=== PATIENT | male | born 1960 | race Hispanic/Latino ===

== ENCOUNTER 2018-03-23 00:39 | Emergency (ER) | payer MEDICARE ==
[2018-03-23] MEDS ORDERED: ACETAMINOPHEN-CODEINE 300/30MG TAB ONE (01:51)
== END 2018-03-23 03:18 | disposition home or self-care (01) ==
LOC: EDH 00:39
DX: M79.672 Pain in left foot (principal); E11.9 Type 2 diabetes mellitus without complications; M19.90 Unspecified osteoarthritis, unspecified site; H40.9 Unspecified glaucoma; Z79.4 Long term (current) use of insulin
CPT/HCPCS: 73630

== ENCOUNTER 2018-12-14 07:17 | Emergency (ER) | payer MEDICARE ==
[2018-12-14] MEDS ORDERED: CEFTRIAXONE SODIUM 1 GM ONE (07:45)
[2018-12-14] MEDS ORDERED: ONDANSETRON ODT 4 MG TAB ONE (07:45)
[2018-12-14] MEDS ORDERED: LIDOCAINE HCL-MPF 1% 2ML VIAL ONE (07:45)
[2018-12-14] MEDS ORDERED: HYDROCODONE/ACETAMINOPHEN 10/325 MG TAB ONE (07:45)
== END 2018-12-14 08:50 | disposition home or self-care (01) ==
LOC: EDH 07:17
DX: H66.41 Suppurative otitis media, unspecified, right ear (principal); I10 Essential (primary) hypertension; E11.39 Type 2 diabetes mellitus with other diabetic ophthalmic complication; H42 Glaucoma in diseases classified elsewhere; M19.90 Unspecified osteoarthritis, unspecified site; Z98.890 Other specified postprocedural states
CPT/HCPCS: 82948; 96372; 99283; J0696; J3490

== ENCOUNTER 2019-01-23 21:14 | Emergency (ER) | payer MEDICARE ==
[2019-01-23] MEDS ORDERED: KETOROLAC TROMETHAMINE 60 MG/2 ML VIAL ONE (21:59)
[2019-01-23] MEDS ORDERED: CEFTRIAXONE SODIUM 1 GM ONE (22:41)
[2019-01-23] MEDS ORDERED: LIDOCAINE HCL-MPF 1% 2ML VIAL ONE (22:41)
== END 2019-01-23 23:09 | disposition home or self-care (01) ==
LOC: EDH 21:14
DX: J01.10 Acute frontal sinusitis, unspecified (principal); E11.9 Type 2 diabetes mellitus without complications; I10 Essential (primary) hypertension; M19.90 Unspecified osteoarthritis, unspecified site; Z98.890 Other specified postprocedural states
CPT/HCPCS: 70486; 96372 ×2; 99284; J0696; J1885; J3490

== ENCOUNTER 2019-04-17 06:19 | Emergency (ER) | payer MEDICARE ==
[2019-04-17] MEDS ORDERED: ASPIRIN 325 MG TABLET ONE (06:40)
[2019-04-17] MEDS ORDERED: ASPIRIN 81MG TAB.CHEW ONE (06:43)
[2019-04-17 06:44] LABS: BASOPHILS % (AUTO) 0.6 % (0.0-5.0); EOSINOPHILS % (AUTO) 2.7 % (0.0-8.0); HEMATOCRIT 40.8 % (42-54); LYMPHOCYTES % (AUTO) 25.7 % (21.0-51.0); MEAN CORPUSCULAR HEMOGLOBIN 31.2 pg (27.0-33.0); MEAN CORPUSCULAR HGB CONC 34.1 g/dL (32.0-36.0); MEAN CORPUSCULAR VOLUME 91.4 fL (79-99); MONOCYTES % (AUTO) 6.2 % (3.0-13.0); NEUTROPHILS % (AUTO) 64.8 % (40.0-77.0); NUCLEATED RED BLOOD CELLS 0.1 % (0.0-0.19); PLATELET COUNT (AUTO) 202 K/uL (130-400); RED BLOOD CELL COUNT(AUTO) 4.47 MIL/uL (4.50-6.20); WHITE BLOOD COUNT (AUTO) 6.7 K/uL (4.8-10.8)
[2019-04-17 06:47] LABS: APPEARANCE,URINE Clear (CLEAR); BILIRUBIN,URINE Negative (NEGATIVE); COLOR,URINE Yellow (YELLOW); GLUCOSE, URINE (UA) Negative (NEGATIVE); KETONES,URINE Negative (NEGATIVE); LEUKOCYTE ESTERASE ,URINE Negative (NEGATIVE); NITRATE,URINE Negative (NEGATIVE); OCCULT BLOOD,URINE Negative (NEGATIVE); PH,URINE 8.5 (5.0-8.0); PROTEIN,URINE Negative (NEGATIVE)
[2019-04-17 06:55] LABS: CREATININE 2.7 mg/dL (0.5-1.5); POTASSIUM 4.7 mmol/L (3.5-5.1)
[2019-04-17 06:58] LABS: INR 0.94 (0.85-1.15); PARTIAL THROMBOPLASTIN TIME 28.2 SEC (26.3-35.5); PROTHROMBIN TIME 9.9 SEC (9.6-11.6)
[2019-04-17 07:08] LABS: ALBUMIN 3.4 g/dL (3.5-5.0); BILIRUBIN,TOTAL 0.4 mg/dL (0.2-1.0); TOTAL PROTEIN, SERUM 6.8 g/dL (6.0-8.3)
== END 2019-04-17 16:07 | disposition home or self-care (01) ==
LOC: EDH 06:19
DX: N17.9 Acute kidney failure, unspecified (principal); R00.2 Palpitations; E11.39 Type 2 diabetes mellitus with other diabetic ophthalmic complication; H40.9 Unspecified glaucoma; I10 Essential (primary) hypertension; Z79.4 Long term (current) use of insulin
CPT/HCPCS: 36415; 71045; 80053; 81003; 82550; 82948; 83874; 84484; 85025; 85610; 85730; 93005

== ENCOUNTER 2019-04-24 00:11 | Emergency (ER) | payer MEDICARE ==
[2019-04-24 01:35] LABS: APPEARANCE,URINE Clear (CLEAR); BASOPHILS % (AUTO) 0.8 % (0.0-5.0); BILIRUBIN,URINE Negative (NEGATIVE); COLOR,URINE Yellow (YELLOW); EOSINOPHILS % (AUTO) 2.7 % (0.0-8.0); GLUCOSE, URINE (UA) Negative (NEGATIVE); HEMATOCRIT 42.4 % (42-54); KETONES,URINE Negative (NEGATIVE); LEUKOCYTE ESTERASE ,URINE Negative (NEGATIVE); LYMPHOCYTES % (AUTO) 26.6 % (21.0-51.0); MEAN CORPUSCULAR HEMOGLOBIN 30.9 pg (27.0-33.0); MEAN CORPUSCULAR HGB CONC 33.5 g/dL (32.0-36.0); MEAN CORPUSCULAR VOLUME 92.4 fL (79-99); MONOCYTES % (AUTO) 8.2 % (3.0-13.0); NEUTROPHILS % (AUTO) 61.7 % (40.0-77.0); NITRATE,URINE Negative (NEGATIVE); NUCLEATED RED BLOOD CELLS 0.1 % (0.0-0.19); OCCULT BLOOD,URINE Negative (NEGATIVE); PLATELET COUNT (AUTO) 213 K/uL (130-400); PROTEIN,URINE Negative (NEGATIVE); RED BLOOD CELL COUNT(AUTO) 4.59 MIL/uL (4.50-6.20); WHITE BLOOD COUNT (AUTO) 7.9 K/uL (4.8-10.8)
[2019-04-24 01:42] LABS: CREATININE 0.9 mg/dL (0.5-1.5); POTASSIUM 4.2 mmol/L (3.5-5.1)
[2019-04-24 01:47] LABS: ALBUMIN 3.8 g/dL (3.5-5.0); BILIRUBIN,TOTAL 0.4 mg/dL (0.2-1.0); TOTAL PROTEIN, SERUM 7.3 g/dL (6.0-8.3)
[2019-04-24 01:59] LABS: INR 0.95 (0.85-1.15); PARTIAL THROMBOPLASTIN TIME 28.4 SEC (26.3-35.5)
== END 2019-04-24 03:02 | disposition home or self-care (01) ==
LOC: EDH 00:11
DX: N44.2 Benign cyst of testis (principal); R36.1 Hematospermia; I10 Essential (primary) hypertension; E11.9 Type 2 diabetes mellitus without complications; M19.90 Unspecified osteoarthritis, unspecified site; Z98.890 Other specified postprocedural states; Z79.4 Long term (current) use of insulin
CPT/HCPCS: 36415; 76870; 80053; 81003; 85025; 85610; 85730

== ENCOUNTER 2019-05-13 07:14 | Day surgery (SDC) | payer MEDICARE ==
[~2019-05-13] VITALS: Ht 172.7 cm; Wt 121.1 kg
[~2019-05-13 07:14] MED LIST: ALLO300T2 PO; ASPI-1197 PO; ATOR40TA71 PO; ATROPINE SULFATE 0.1 MG/ML 10 ML SYG IVP ONE; BRIM5DRO4 OU; DICY20TA11 PO; ERGO500014 PO; INSU100I35 SQ; LATA7.5D OU; LISI-613 PO; METF-526 PO; PROPOFOL 10 MG/ML 20ML VIAL IV ONE; ROSU10TA28 PO; SODIUM CHLORIDE 0.9% 1000ML 1,000 ML IV ONE; TIMO.5OS OU
[2019-05-13 09:21] VITALS: BP 132/62
[2019-05-13] MEDS ORDERED: OMEP-50 PO (09:43)
[2019-05-13] MEDS ORDERED: VITAMIN B12 PO (09:43)
[2019-05-13 11:21] VITALS: BP 96/34
[2019-05-13 11:26] VITALS: BP 109/53
[2019-05-13 11:31] VITALS: BP 114/62
[2019-05-13 11:36] VITALS: BP 115/55
--- NOTE | 2019-05-13 12:20 | NUR ---
Update Awaiting new prescription from Dr. Manrique. Patient stated he gets abdominal bloating from omeprazole.
== END 2019-05-13 12:20 | disposition home or self-care (01) ==
LOC: ENDO 07:14 → DAH 07:14 → ENDO 12:20
PROVIDERS: ATTEND Internal Medicine
DX: K21.0 Gastro-esophageal reflux disease with esophagitis (principal); K29.80 Duodenitis without bleeding; K31.9 Disease of stomach and duodenum, unspecified; K29.50 Unspecified chronic gastritis without bleeding; K44.9 Diaphragmatic hernia without obstruction or gangrene; I44.4 Left anterior fascicular block; K31.89 Other diseases of stomach and duodenum; G47.30 Sleep apnea, unspecified; Z99.89 Dependence on other enabling machines and devices; E78.5 Hyperlipidemia, unspecified; K58.9 Irritable bowel syndrome, unspecified; I11.9 Hypertensive heart disease without heart failure; M19.90 Unspecified osteoarthritis, unspecified site; E11.9 Type 2 diabetes mellitus without complications; Z79.84 Long term (current) use of oral hypoglycemic drugs; Z79.899 Other long term (current) drug therapy
CPT/HCPCS: 43239; 82948 ×2; 88305; 88342; 93005; A4606; J0461; J2704; J7030

== ENCOUNTER 2019-05-17 20:09 | Emergency (ER) | payer MEDICARE ==
[~2019-05-17 20:09] MED LIST changes: -ATROPINE SULFATE 0.1 MG/ML 10 ML SYG IVP ONE; -PROPOFOL 10 MG/ML 20ML VIAL IV ONE; -SODIUM CHLORIDE 0.9% 1000ML 1,000 ML IV ONE; +VITAMIN B12 PO
[2019-05-17 20:56] LABS: BASOPHILS % (AUTO) 0.4 % (0.0-5.0); EOSINOPHILS % (AUTO) 2.6 % (0.0-8.0); HEMATOCRIT 37.2 % (42-54); LYMPHOCYTES % (AUTO) 18.3 % (21.0-51.0); MEAN CORPUSCULAR HGB CONC 33.9 g/dL (32.0-36.0); MEAN CORPUSCULAR VOLUME 91.5 fL (79-99); MONOCYTES % (AUTO) 6.2 % (3.0-13.0); NEUTROPHILS % (AUTO) 72.5 % (40.0-77.0); PLATELET COUNT (AUTO) 231 K/uL (130-400); RED BLOOD CELL COUNT(AUTO) 4.06 MIL/uL (4.50-6.20); RED CELL DISTRIBUTION WIDTH 14.2 % (11.0-15.5)
[2019-05-17 21:10] LABS: APPEARANCE,URINE Clear (CLEAR); BILIRUBIN,URINE Negative (NEGATIVE); COLOR,URINE Yellow (YELLOW); GLUCOSE, URINE (UA) Negative (NEGATIVE); KETONES,URINE 15 mg/dL (NEGATIVE); LEUKOCYTE ESTERASE ,URINE Negative (NEGATIVE); NITRATE,URINE Negative (NEGATIVE); OCCULT BLOOD,URINE Negative (NEGATIVE); PH,URINE 8.5 (5.0-8.0); PROTEIN,URINE Negative (NEGATIVE)
[2019-05-17 21:17] LABS: POTASSIUM 3.6 mmol/L (3.5-5.1)
[2019-05-17 21:22] LABS: ALBUMIN 3.6 g/dL (3.5-5.0); BILIRUBIN,DIRECT 0.1 mg/dL (0.0-0.3); BILIRUBIN,TOTAL 0.5 mg/dL (0.2-1.0); TOTAL PROTEIN, SERUM 7.1 g/dL (6.0-8.3)
[2019-05-17] MEDS ORDERED: FAMOTIDINE/PF 20 MG/2 ML VIAL IV ONE (22:16)
== END 2019-05-18 00:18 | disposition home or self-care (01) ==
LOC: EDH 20:09
DX: K29.70 Gastritis, unspecified, without bleeding (principal); K30 Functional dyspepsia; K44.9 Diaphragmatic hernia without obstruction or gangrene; K20.9 Esophagitis, unspecified; R06.00 Dyspnea, unspecified; M19.90 Unspecified osteoarthritis, unspecified site; I10 Essential (primary) hypertension; E11.9 Type 2 diabetes mellitus without complications; Z88.8 Allergy status to other drugs, medicaments and biological substances; Z98.890 Other specified postprocedural states
CPT/HCPCS: 36415; 71046; 80048; 80076; 81003; 82550; 83690; 84484 ×2; 85025; 93005 ×2; 96374; 99285; J3490

== ENCOUNTER 2019-09-20 23:54 | Emergency (ER) | payer MEDICARE ==
[2019-09-21 00:24] LABS: APPEARANCE,URINE Cloudy (CLEAR); BILIRUBIN,URINE Negative (NEGATIVE); COLOR,URINE Yellow (YELLOW); GLUCOSE, URINE (UA) Negative (NEGATIVE); KETONES,URINE Negative (NEGATIVE); LEUKOCYTE ESTERASE ,URINE Moderate (NEGATIVE); NITRATE,URINE Negative (NEGATIVE); OCCULT BLOOD,URINE Negative (NEGATIVE); PROTEIN,URINE Negative (NEGATIVE); UROBILINOGEN,URINE 0.2 mg/dL (0.2-1.0)
[2019-09-21 00:32] LABS: BACTERIA,URINE Rare /HPF (None Seen); MUCUS,URINE Few LPF (None Seen); RBC,URINE None Seen /HPF (0-1); SQUAMOUS EPITHELIAL CELL,UR Few /HPF (0-2)
[2019-09-21 00:41] LABS: RAPID GROUP A STREP NEGATIVE (NEGATIVE)
[2019-09-21] MEDS ORDERED: LIDOCAINE HCL-MPF 1% 2ML VIAL ONE (00:48)
[2019-09-21] MEDS ORDERED: CEFTRIAXONE SODIUM 1 GM ONE (00:48)
[2019-09-21] MEDS ORDERED: PHENAZOPYRIDINE HCL 200 MG TABLET ONE (00:48)
== END 2019-09-21 00:58 | disposition home or self-care (01) ==
LOC: EDH 23:54
DX: N30.00 Acute cystitis without hematuria (principal); J06.9 Acute upper respiratory infection, unspecified; M19.90 Unspecified osteoarthritis, unspecified site; I42.9 Cardiomyopathy, unspecified; E11.9 Type 2 diabetes mellitus without complications; I10 Essential (primary) hypertension; K58.9 Irritable bowel syndrome, unspecified; G47.30 Sleep apnea, unspecified; Z98.890 Other specified postprocedural states
CPT/HCPCS: 81001; 87088; 87486; 87797; 87804 ×2; 87880; 96372; 99284; J0696; J3490

== ENCOUNTER 2020-02-17 00:19 | Emergency (ER) | payer MEDICARE ==
[2020-02-17 00:35] LABS: BASOPHILS % (AUTO) 0.3 % (0.0-5.0); EOSINOPHILS % (AUTO) 2.4 % (0.0-8.0); HEMATOCRIT 43.4 % (42-54); LYMPHOCYTES % (AUTO) 24.2 % (21.0-51.0); MEAN CORPUSCULAR HGB CONC 33.6 g/dL (32.0-36.0); MEAN CORPUSCULAR VOLUME 92.1 fL (79-99); MONOCYTES % (AUTO) 6.5 % (3.0-13.0); NEUTROPHILS % (AUTO) 66.4 % (40.0-77.0); PLATELET COUNT (AUTO) 224 K/uL (130-400); RED BLOOD CELL COUNT(AUTO) 4.71 MIL/uL (4.50-6.20); RED CELL DISTRIBUTION WIDTH 13.2 % (11.0-15.5); WHITE BLOOD COUNT (AUTO) 9.1 K/uL (4.8-10.8)
[2020-02-17 00:42] LABS: CREATININE 0.9 mg/dL (0.5-1.5); POTASSIUM 3.4 mmol/L (3.5-5.1)
[2020-02-17 01:42] LABS: HEMOGLOBIN A1C 7.3 % (4.0-6.0)
== END 2020-02-17 01:47 | disposition home or self-care (01) ==
LOC: EDH 00:19
DX: E16.2 Hypoglycemia, unspecified (principal); M19.90 Unspecified osteoarthritis, unspecified site; E11.9 Type 2 diabetes mellitus without complications; I10 Essential (primary) hypertension; Z91.018 Allergy to other foods
CPT/HCPCS: 36415; 80048; 82948; 83036; 85025

== ENCOUNTER 2020-12-16 22:24 | Emergency (ER) | payer MEDICARE ==
[~2020-12-16 22:24] MED LIST changes: -LISI-613 PO; +LISI20TA24 PO
[2020-12-16 22:57] LABS: BASOPHILS % (AUTO) 0.4 % (0.0-5.0); EOSINOPHILS % (AUTO) 2.5 % (0.0-8.0); HEMATOCRIT 51.1 % (42-54); LYMPHOCYTES % (AUTO) 28.4 % (21.0-51.0); MEAN CORPUSCULAR HEMOGLOBIN 29.1 pg (27.0-33.0); MEAN CORPUSCULAR HGB CONC 31.7 g/dL (32.0-36.0); MEAN CORPUSCULAR VOLUME 91.9 fL (79-99); MONOCYTES % (AUTO) 6.3 % (3.0-13.0); NEUTROPHILS % (AUTO) 62.1 % (40.0-77.0); PLATELET COUNT (AUTO) 235 K/uL (130-400); RED BLOOD CELL COUNT(AUTO) 5.56 MIL/uL (4.50-6.20); RED CELL DISTRIBUTION WIDTH 13.9 % (11.0-15.5); WHITE BLOOD COUNT (AUTO) 7.6 K/uL (4.8-10.8)
[2020-12-16 22:59] LABS: APPEARANCE,URINE Clear (CLEAR); BILIRUBIN,URINE Negative (NEGATIVE); COLOR,URINE Yellow (YELLOW); GLUCOSE, URINE (UA) >=1000 mg/dL (NEGATIVE); KETONES,URINE Negative (NEGATIVE); LEUKOCYTE ESTERASE ,URINE Negative (NEGATIVE); NITRATE,URINE Negative (NEGATIVE); OCCULT BLOOD,URINE Negative (NEGATIVE); PROTEIN,URINE Negative (NEGATIVE); UROBILINOGEN,URINE 0.2 mg/dL (0.2-1.0)
[2020-12-16] MEDS ORDERED: ONDANSETRON HCL 4 MG/2 ML VIAL ONE (23:00)
[2020-12-16 23:08] LABS: POTASSIUM 4.1 mmol/L (3.5-5.1)
[2020-12-16 23:09] LABS: BACTERIA,URINE None Seen /HPF (None Seen); INR 1.03 (0.85-1.15); PROTHROMBIN TIME 11.2 SEC (9.6-11.6); RBC,URINE 0-1 /HPF (0-1); SQUAMOUS EPITHELIAL CELL,UR Few /HPF (0-2); WBC,URINE None Seen /HPF (0-1); YEAST,URINE BUDDING None Seen /HPF (None Seen)
[2020-12-16 23:10] LABS: PARTIAL THROMBOPLASTIN TIME 28.8 SEC (26.3-35.5)
[2020-12-16] MEDS ORDERED: IOHEXOL-350 75 ML VIAL IV ONE (23:11)
[2020-12-16 23:13] LABS: ALBUMIN 3.8 g/dL (3.5-5.0); BILIRUBIN,TOTAL 0.6 mg/dL (0.2-1.0); TOTAL PROTEIN, SERUM 7.6 g/dL (6.0-8.3)
== END 2020-12-17 01:08 | disposition home or self-care (01) ==
LOC: EDH 22:24
DX: R10.31 Right lower quadrant pain (principal); M19.90 Unspecified osteoarthritis, unspecified site; E11.9 Type 2 diabetes mellitus without complications; I10 Essential (primary) hypertension; M10.9 Gout, unspecified; Z91.018 Allergy to other foods
CPT/HCPCS: 36415; 74177; 80053; 81001; 83690; 85025; 85610; 85730; 96374; 99285; J2405; Q9967

== ENCOUNTER 2021-03-25 13:21 | Emergency (ER) | payer MEDICARE ==
[~2021-03-25] VITALS: Ht 172.7 cm; Wt 117.9 kg
[2021-03-25] MEDS ORDERED: 0.9% NACL 500ML IV.SOLN 500 ML IV SCH (16:00)
[2021-03-25 16:04] LABS: APPEARANCE,URINE Clear (CLEAR); BILIRUBIN,URINE Negative (NEGATIVE); COLOR,URINE Yellow (YELLOW); GLUCOSE, URINE (UA) Negative (NEGATIVE); KETONES,URINE Negative (NEGATIVE); LEUKOCYTE ESTERASE ,URINE Negative (NEGATIVE); NITRATE,URINE Negative (NEGATIVE); OCCULT BLOOD,URINE Negative (NEGATIVE); PROTEIN,URINE Negative (NEGATIVE); UROBILINOGEN,URINE 0.2 mg/dL (0.2-1.0)
[2021-03-25] MEDS ORDERED: 0.9%NACL 1000ML 1,000 ML IV ONE (16:12)
[2021-03-25 16:28] LABS: BASOPHILS % (AUTO) 0.2 % (0.0-5.0); EOSINOPHILS % (AUTO) 1.9 % (0.0-8.0); HEMATOCRIT 45.7 % (42-54); LYMPHOCYTES % (AUTO) 19.9 % (21.0-51.0); MEAN CORPUSCULAR HEMOGLOBIN 30.1 pg (27.0-33.0); MEAN CORPUSCULAR HGB CONC 32.2 g/dL (32.0-36.0); MEAN CORPUSCULAR VOLUME 93.5 fL (79-99); MONOCYTES % (AUTO) 5.7 % (3.0-13.0); NEUTROPHILS % (AUTO) 71.9 % (40.0-77.0); PLATELET COUNT (AUTO) 228 K/uL (130-400); RED BLOOD CELL COUNT(AUTO) 4.89 MIL/uL (4.50-6.20); RED CELL DISTRIBUTION WIDTH 13.6 % (11.0-15.5); WHITE BLOOD COUNT (AUTO) 11.3 K/uL (4.8-10.8)
[2021-03-25 16:49] LABS: CARBON DIOXIDE 30 mmol/L (21-32); CHLORIDE 105 mmol/L (101-111); CREATININE 0.8 mg/dL (0.5-1.5); GLOMERULAR FILTR. RATE CALC 105 mL/min (>60); GLUCOSE,RANDOM 102 mg/dL (70-105); POTASSIUM 4.5 mmol/L (3.5-5.1); SODIUM SERUM 143 mmol/L (136-145); UREA NITROGEN, BLOOD 23 mg/dL (7-18)
[2021-03-25 16:51] LABS: CRP QUANTITATIVE < 2.00 mg/L (0.00-9.0)
[2021-03-25 16:52] LABS: ALANINE AMINOTRANSFERASE 31 U/L (12-78); ALBUMIN 3.5 g/dL (3.5-5.0); ASPARTATE AMINOTRANSFERASE 17 U/L (10-37); BILIRUBIN,TOTAL 0.5 mg/dL (0.2-1.0); TOTAL PROTEIN, SERUM 7.5 g/dL (6.0-8.3)
[2021-03-25] MEDS ORDERED: IOHEXOL-350 75 ML VIAL IV ONE ×2 (17:05→17:48)
[2021-03-25 17:36] LABS: ERYTHROCYTE SEDIMENTATION RATE 3 MM/HR (0-20)
[2021-03-25] MEDS ORDERED: IBUP-2070 PO (19:26)
[2021-03-25] MEDS ORDERED: CYCL5TAB PO (19:26)
[2021-03-25] MEDS ORDERED: TRAM50TA4 PO (19:26)
[2021-03-25 19:39] VITALS: BP 139/69
== END 2021-03-25 19:45 | disposition home or self-care (01) ==
LOC: EDH 13:21
DX: S76.011A Strain of muscle, fascia and tendon of right hip, initial encounter (principal); M79.651 Pain in right thigh; E86.0 Dehydration; E11.9 Type 2 diabetes mellitus without complications; E78.5 Hyperlipidemia, unspecified; I10 Essential (primary) hypertension; K21.9 Gastro-esophageal reflux disease without esophagitis; M19.90 Unspecified osteoarthritis, unspecified site; Z79.4 Long term (current) use of insulin; Z96.643 Presence of artificial hip joint, bilateral; Z79.899 Other long term (current) drug therapy; Z79.82 Long term (current) use of aspirin; Z79.1 Long term (current) use of non-steroidal anti-inflammatories (NSAID); Z88.8 Allergy status to other drugs, medicaments and biological substances; X50.1XXA Overexertion from prolonged static or awkward postures, initial encounter; Y93.H2 Activity, gardening and landscaping; Y92.096 Garden or yard of other non-institutional residence as the place of occurrence of the external cause; Y99.8 Other external cause status
CPT/HCPCS: 36415; 73701; 80053; 81003; 85025; 85651; 86140; 87040 ×2; 96360; 99285; J7030; Q9967 ×2

== ENCOUNTER 2022-02-26 02:19 | Emergency (ER) | payer MEDICARE ==
[~2022-02-26] VITALS: Ht 172.7 cm; Wt 117.0 kg
[~2022-02-26 02:19] MED LIST changes: +CYCL5TAB PO; -DICY20TA11 PO; +DICY20TA3 PO; +IBUP-2070 PO; +TRAM50TA4 PO
[2022-02-26 02:39] VITALS: BP 140/66
[2022-02-26] MEDS ORDERED: CLOTRIMAZOLE 30 GM CREAM.GM. TP STA (02:40)
[2022-02-26] MEDS ORDERED: LIDO15CR11 TP (02:47)
[2022-02-26] MEDS ORDERED: BENZ85AE TP (02:47)
[2022-02-26] MEDS ORDERED: CLOT15CR23 TP (02:47)
[2022-02-26] MEDS ORDERED: BENZOCAINE/LANOLIN/ALOE VERA 60 ML AEROSOL TP ONE (02:51)
[2022-02-26] MEDS ORDERED: LIDOCAINE/PRILOCAINE CREAM 5GM TUBE TP SCH (03:00)
[2022-02-26] MEDS ORDERED: BENZOCAINE/LANOLIN/ALOE VERA 60 ML AEROSOL TP PRN (03:00)
== END 2022-02-26 03:05 | disposition home or self-care (01) ==
LOC: EDH 02:19
DX: B35.6 Tinea cruris (principal); E11.9 Type 2 diabetes mellitus without complications; E78.00 Pure hypercholesterolemia, unspecified; G47.30 Sleep apnea, unspecified; I10 Essential (primary) hypertension; Z79.1 Long term (current) use of non-steroidal anti-inflammatories (NSAID); Z79.82 Long term (current) use of aspirin; Z79.84 Long term (current) use of oral hypoglycemic drugs; Z96.643 Presence of artificial hip joint, bilateral
CPT/HCPCS: 99284; J3490

== ENCOUNTER 2022-10-15 19:42 | Emergency (ER) | payer MEDICARE ==
[~2022-10-15] VITALS: Ht 172.7 cm; Wt 113.9 kg
[~2022-10-15 19:42] MED LIST changes: +BENZ85AE TP; +CLOT15CR23 TP; +LIDO15CR11 TP
[2022-10-15 21:18] VITALS: BP 161/83
[2022-10-15 21:55] LABS: BASOPHILS % (AUTO) 0.4 % (0.0-5.0); EOSINOPHILS % (AUTO) 2.3 % (0.0-8.0); HEMATOCRIT 46.9 % (42-54); LYMPHOCYTES % (AUTO) 26.8 % (21.0-51.0); MEAN CORPUSCULAR HEMOGLOBIN 30.7 pg (27.0-33.0); MEAN CORPUSCULAR HGB CONC 33.5 g/dL (32.0-36.0); MEAN CORPUSCULAR VOLUME 91.6 fL (79-99); MONOCYTES % (AUTO) 6.8 % (3.0-13.0); NEUTROPHILS % (AUTO) 63.4 % (40.0-77.0); PLATELET COUNT (AUTO) 223 K/uL (130-400); RED BLOOD CELL COUNT(AUTO) 5.12 MIL/uL (4.50-6.20); RED CELL DISTRIBUTION WIDTH 13.4 % (11.0-15.5); WHITE BLOOD COUNT (AUTO) 7.9 K/uL (4.8-10.8)
[2022-10-15 22:06] LABS: POTASSIUM 4.1 mmol/L (3.5-5.1)
[2022-10-15 22:11] LABS: ALBUMIN 3.7 g/dL (3.5-5.0); TOTAL PROTEIN, SERUM 7.5 g/dL (6.0-8.3)
[2022-10-15] MEDS ORDERED: IBUP-2070 PO (22:49)
[2022-10-15] MEDS ORDERED: ONDA4TAB10 PO (22:49)
[2022-10-15] MEDS ORDERED: KETOROLAC 30MG VIAL (30MG/ML) IM ONE (23:00)
== END 2022-10-15 23:03 | disposition home or self-care (01) ==
LOC: EDH 19:42
DX: K08.89 Other specified disorders of teeth and supporting structures (principal); E11.9 Type 2 diabetes mellitus without complications; I10 Essential (primary) hypertension; I42.9 Cardiomyopathy, unspecified; Z79.1 Long term (current) use of non-steroidal anti-inflammatories (NSAID); Z79.82 Long term (current) use of aspirin; Z79.84 Long term (current) use of oral hypoglycemic drugs; Z20.822 Contact with and (suspected) exposure to COVID-19; Z79.899 Other long term (current) drug therapy; Z91.018 Allergy to other foods
CPT/HCPCS: 99283; 87635; 80053; 85025; 83605; 36415; 96372; C9803; J1885

== ENCOUNTER 2022-10-25 19:19 | Emergency (ER) | payer MEDICARE ==
[~2022-10-25] VITALS: Ht 170.2 cm; Wt 112.0 kg
[~2022-10-25 19:19] MED LIST changes: +ONDA4TAB10 PO
[2022-10-25 19:47] LABS: BASOPHILS % (AUTO) 0.3 % (0.0-5.0); EOSINOPHILS % (AUTO) 1.5 % (0.0-8.0); HEMATOCRIT 48.1 % (42-54); MEAN CORPUSCULAR HEMOGLOBIN 30.5 pg (27.0-33.0); MEAN CORPUSCULAR HGB CONC 32.6 g/dL (32.0-36.0); MEAN CORPUSCULAR VOLUME 93.4 fL (79-99); MONOCYTES % (AUTO) 6.9 % (3.0-13.0); PLATELET COUNT (AUTO) 245 K/uL (130-400); RED BLOOD CELL COUNT(AUTO) 5.15 MIL/uL (4.50-6.20); RED CELL DISTRIBUTION WIDTH 13.2 % (11.0-15.5); WHITE BLOOD COUNT (AUTO) 9.8 K/uL (4.8-10.8)
[2022-10-25 20:00] LABS: INR 0.93 (0.85-1.15); PROTHROMBIN TIME 10.1 SEC (9.6-11.6)
[2022-10-25 20:04] LABS: CREATININE 0.9 mg/dL (0.5-1.5); POTASSIUM 3.3 mmol/L (3.5-5.1)
[2022-10-25 20:09] LABS: ALBUMIN 3.7 g/dL (3.5-5.0); TOTAL PROTEIN, SERUM 7.6 g/dL (6.0-8.3)
[2022-10-25 20:22] LABS: B-TYPE NATRIURETIC PEPTIDE 14 pg/mL (0-100)
[2022-10-25] MEDS ORDERED: POTASSIUM BICARB/CIT AC 25 MEQ TABLET.EFF PO ONE (20:30)
[2022-10-25 22:29] LABS: APPEARANCE,URINE CLEAR (CLEAR); BILIRUBIN,URINE NEGATIVE (NEGATIVE); COLOR,URINE LIGHT-YELLOW (YELLOW); GLUCOSE, URINE (UA) >=1000 mg/dL (NEGATIVE); KETONES,URINE 5 mg/dL (NEGATIVE); LEUKOCYTE ESTERASE ,URINE NEGATIVE Leu/uL (NEGATIVE); NITRATE,URINE NEGATIVE (NEGATIVE); OCCULT BLOOD,URINE NEGATIVE (NEGATIVE); PH,URINE 5.5 (5.0-8.0); PROTEIN,URINE NEGATIVE (NEGATIVE); UROBILINOGEN,URINE 0.2 mg/dL (0.2-1.0)
[2022-10-25] MEDS ORDERED: 0.9%NACL 1000ML 1,000 ML IV ONE (22:30)
[2022-10-25 22:32] LABS: MUCUS,URINE RARE LPF (None Seen); RBC,URINE 0-1 /HPF (0-1); WBC,URINE 0-1 /HPF (0-1)
[2022-10-25 23:54] VITALS: BP 126/65
== END 2022-10-26 00:20 | disposition home or self-care (01) ==
LOC: EDH 19:19
DX: I49.3 Ventricular premature depolarization (principal); F41.9 Anxiety disorder, unspecified; E11.9 Type 2 diabetes mellitus without complications; Z98.890 Other specified postprocedural states; Z79.899 Other long term (current) drug therapy; Z79.82 Long term (current) use of aspirin; Z79.84 Long term (current) use of oral hypoglycemic drugs
CPT/HCPCS: 36415; 71045; 80053; 81001; 83735; 83880; 84484; 85025; 85610; 93005

== ENCOUNTER 2022-11-10 01:49 | Emergency (ER) | payer MEDICARE ==
[~2022-11-10] VITALS: Ht 172.7 cm; Wt 115.2 kg
[2022-11-10] MEDS ORDERED: AMOX1TAB16 PO (03:13)
[2022-11-10] MEDS ORDERED: IBUP-1493 PO (03:13)
[2022-11-10] MEDS ORDERED: TRAM50TA4 PO (03:13)
[2022-11-10 03:30] VITALS: BP 149/82
[2022-11-10] MEDS ORDERED: HYDROCODONE/ACETAMINOPHEN 10/325 MG TAB PO ONE (03:30)
[2022-11-10] MEDS ORDERED: ALBUTEROL 0.083% 2.5 MG/3 ML INH IH ONE (03:30)
== END 2022-11-10 03:35 | disposition home or self-care (01) ==
LOC: EDH 01:49
DX: K08.89 Other specified disorders of teeth and supporting structures (principal); J01.90 Acute sinusitis, unspecified; E11.9 Type 2 diabetes mellitus without complications; E78.00 Pure hypercholesterolemia, unspecified; I10 Essential (primary) hypertension; M19.90 Unspecified osteoarthritis, unspecified site; Z79.1 Long term (current) use of non-steroidal anti-inflammatories (NSAID); Z79.82 Long term (current) use of aspirin; Z79.84 Long term (current) use of oral hypoglycemic drugs; Z96.643 Presence of artificial hip joint, bilateral
CPT/HCPCS: 70486

== ENCOUNTER → 2022-11-22 | Outpatient (CLI) | payer OTHER ==
[~2022-11-22] MED LIST changes: +AMOX1TAB16 PO; -CLOT15CR23 TP; -CYCL5TAB PO; +IBUP-1493 PO; -IBUP-2070 PO; -LIDO15CR11 TP
== END | disposition home or self-care (01) ==
LOC: RAH 12:31
PROVIDERS: ATTEND Internal Medicine Cardiovascular Disease
DX: Z13.6 Encounter for screening for cardiovascular disorders (principal); I51.5 Myocardial degeneration
CPT/HCPCS: 75571

== ENCOUNTER 2022-11-30 18:56 | Emergency (ER) | payer MEDICARE, OTHER ==
[~2022-11-30] VITALS: Ht 172.7 cm; Wt 111.6 kg
[2022-11-30] MEDS ORDERED: ACETAMINOPHEN WITH CODEINE 1 TAB TAB PO ONE (20:00)
[2022-11-30] MEDS ORDERED: ACET-2079 PO (20:06)
[2022-11-30 20:10] VITALS: BP 154/84
[2022-12-01] MEDS ORDERED: AMOX1TAB16 PO (22:01)
== END 2022-11-30 20:18 | disposition home or self-care (01) ==
LOC: EDH 18:56
DX: S02.5XXA Fracture of tooth (traumatic), initial encounter for closed fracture (principal); G47.30 Sleep apnea, unspecified; Z79.899 Other long term (current) drug therapy; Z79.84 Long term (current) use of oral hypoglycemic drugs; Z79.82 Long term (current) use of aspirin; Z96.643 Presence of artificial hip joint, bilateral; Z88.8 Allergy status to other drugs, medicaments and biological substances; X58.XXXA Exposure to other specified factors, initial encounter; Y93.89 Activity, other specified; Y92.89 Other specified places as the place of occurrence of the external cause; Y99.8 Other external cause status

== ENCOUNTER 2022-12-01 18:41 | Emergency (ER) | payer MEDICARE ==
[~2022-12-01] VITALS: Ht 172.7 cm; Wt 113.4 kg
[~2022-12-01 18:41] MED LIST changes: +ACET-2079 PO
[2022-12-01 20:28] LABS: BASOPHILS % (AUTO) 0.3 % (0.0-5.0); EOSINOPHILS % (AUTO) 1.8 % (0.0-8.0); HEMATOCRIT 50.4 % (42-54); LYMPHOCYTES % (AUTO) 25.4 % (21.0-51.0); MEAN CORPUSCULAR HEMOGLOBIN 30.2 pg (27.0-33.0); MEAN CORPUSCULAR HGB CONC 33.3 g/dL (32.0-36.0); MEAN CORPUSCULAR VOLUME 90.5 fL (79-99); MONOCYTES % (AUTO) 7.5 % (3.0-13.0); NEUTROPHILS % (AUTO) 64.7 % (40.0-77.0); PLATELET COUNT (AUTO) 251 K/uL (130-400); RED BLOOD CELL COUNT(AUTO) 5.57 MIL/uL (4.50-6.20); RED CELL DISTRIBUTION WIDTH 13.1 % (11.0-15.5)
[2022-12-01] MEDS ORDERED: KETOROLAC 60 MG VIAL (30MG/ML) IM ONE (20:30)
[2022-12-01 20:37] LABS: POTASSIUM 4.4 mmol/L (3.5-5.1)
[2022-12-01 20:42] LABS: ALBUMIN 3.9 g/dL (3.5-5.0); TOTAL PROTEIN, SERUM 7.9 g/dL (6.0-8.3)
[2022-12-01 21:28] VITALS: BP 147/79
[2022-12-01] MEDS ORDERED: AMOX1TAB16 PO (22:01)
== END 2022-12-01 22:22 | disposition home or self-care (01) ==
LOC: EDH 18:41
DX: K02.9 Dental caries, unspecified (principal); K08.89 Other specified disorders of teeth and supporting structures; J32.9 Chronic sinusitis, unspecified; I10 Essential (primary) hypertension; M19.90 Unspecified osteoarthritis, unspecified site; G47.30 Sleep apnea, unspecified; Z91.018 Allergy to other foods; Z98.890 Other specified postprocedural states; Z79.899 Other long term (current) drug therapy; Z79.84 Long term (current) use of oral hypoglycemic drugs; Z79.82 Long term (current) use of aspirin
CPT/HCPCS: 99285; 70486; 80053; 85025; 36415; 96372; J1885

== ENCOUNTER → 2022-12-05 | Outpatient (CLI) | payer MEDICARE ==
[2022-12-05 13:04] LABS: CHOLESTEROL 113 mg/dL (<200); HDL CHOLESTEROL 37 mg/dL (29-71); LDL DIRECT 61 mg/dL (0-99); TRIGLYCERIDES 59 mg/dL (30-200)
== END | disposition home or self-care (01) ==
LOC: LAB 08:06
PROVIDERS: ATTEND Internal Medicine Cardiovascular Disease
DX: E78.5 Hyperlipidemia, unspecified (principal)
CPT/HCPCS: 36415; 80061

== ENCOUNTER → 2022-12-25 | Outpatient (CLI) | payer MEDICARE ==
[~2022-12-25] MED LIST changes: +REGADENOSON 0.4 MG/5 ML PF SYG IVP SCH
== END | disposition home or self-care (01) ==
LOC: SHCH 08:16
PROVIDERS: ATTEND Internal Medicine Cardiovascular Disease
DX: I25.10 Atherosclerotic heart disease of native coronary artery without angina pectoris (principal); I10 Essential (primary) hypertension; E11.9 Type 2 diabetes mellitus without complications; Z79.899 Other long term (current) drug therapy
CPT/HCPCS: 78452; 96374; 93017; J2785; A9500 ×2

== ENCOUNTER 2023-02-03 18:25 | Emergency (ER) | payer MEDICARE ==
[~2023-02-03] VITALS: Ht 172.7 cm; Wt 109.8 kg
[~2023-02-03 18:25] MED LIST changes: -BRIM5DRO4 OU; +BRIM5DRO5 OU; -REGADENOSON 0.4 MG/5 ML PF SYG IVP SCH
[2023-02-03 18:49] LABS: BASOPHILS % (AUTO) 0.4 % (0.0-5.0); EOSINOPHILS % (AUTO) 1.8 % (0.0-8.0); HEMATOCRIT 49.7 % (42-54); LYMPHOCYTES % (AUTO) 24.4 % (21.0-51.0); MEAN CORPUSCULAR HEMOGLOBIN 30.3 pg (27.0-33.0); MEAN CORPUSCULAR HGB CONC 32.6 g/dL (32.0-36.0); MEAN CORPUSCULAR VOLUME 92.9 fL (79-99); MONOCYTES % (AUTO) 5.5 % (3.0-13.0); NEUTROPHILS % (AUTO) 67.5 % (40.0-77.0); PLATELET COUNT (AUTO) 216 K/uL (130-400); RED BLOOD CELL COUNT(AUTO) 5.35 MIL/uL (4.50-6.20); RED CELL DISTRIBUTION WIDTH 13.9 % (11.0-15.5); WHITE BLOOD COUNT (AUTO) 10.1 K/uL (4.8-10.8)
[2023-02-03 19:03] LABS: CREATININE 0.8 mg/dL (0.5-1.5); POTASSIUM 3.8 mmol/L (3.5-5.1)
[2023-02-03 19:10] LABS: ALBUMIN 3.9 g/dL (3.5-5.0); TOTAL PROTEIN, SERUM 7.1 g/dL (6.0-8.3)
[2023-02-03 19:11] VITALS: BP 148/70
[2023-02-03 19:36] LABS: B-TYPE NATRIURETIC PEPTIDE 11 pg/mL (0-100)
== END 2023-02-03 19:39 | disposition home or self-care (01) ==
LOC: EDH 18:25
DX: R00.2 Palpitations (principal); I49.3 Ventricular premature depolarization; E11.9 Type 2 diabetes mellitus without complications; K21.9 Gastro-esophageal reflux disease without esophagitis; I10 Essential (primary) hypertension; E78.00 Pure hypercholesterolemia, unspecified; Z79.1 Long term (current) use of non-steroidal anti-inflammatories (NSAID); Z79.2 Long term (current) use of antibiotics; Z79.4 Long term (current) use of insulin; Z79.82 Long term (current) use of aspirin; Z79.899 Other long term (current) drug therapy; Z88.8 Allergy status to other drugs, medicaments and biological substances; Z79.84 Long term (current) use of oral hypoglycemic drugs
CPT/HCPCS: 36415; 71045; 80053; 83735; 83880; 84484; 85025; 93005

== ENCOUNTER 2023-08-11 03:23 | Emergency (ER) | payer MEDICARE ==
[~2023-08-11] VITALS: Ht 172.7 cm; Wt 109.8 kg
[~2023-08-11 03:23] MED LIST changes: -ACET-2079 PO; -AMOX1TAB16 PO; -BENZ85AE TP; -IBUP-1493 PO; -ONDA4TAB10 PO; -TRAM50TA4 PO
[2023-08-11] MEDS ORDERED: DICYCLOMINE 20MG (10MG/ML) AMP IM ONE ×2 (03:32→04:00)
[2023-08-11 04:11] LABS: BASOPHILS # (AUTO) 0.04 K/uL (0.00-0.20); BASOPHILS % (AUTO) 0.4 % (0.0-5.0); EOSINOPHILS # (AUTO) 0.24 K/uL (0.00-0.70); EOSINOPHILS % (AUTO) 2.4 % (0.0-8.0); HEMATOCRIT 46.5 % (42-54); IMMATURE GRANULOCYTE ABSOLUTE 0.05 K/uL (0-1); LYMPHOCYTES # (AUTO) 2.1 K/uL (1.0-4.8); MEAN CORPUSCULAR HGB CONC 33.3 g/dL (32.0-36.0); MONOCYTES # (AUTO) 0.7 K/uL (0.1-1.0); MONOCYTES % (AUTO) 6.6 % (3.0-13.0); NEUTROPHILS # (AUTO) 7.1 K/uL (1.8-7.7); NEUTROPHILS % (AUTO) 69.1 % (40.0-77.0); PLATELET COUNT (AUTO) 221 K/uL (130-400); RED CELL DISTRIBUTION WIDTH 13.5 % (11.0-15.5); WHITE BLOOD COUNT (AUTO) 10.2 K/uL (4.8-10.8)
[2023-08-11 04:19] LABS: CREATININE 0.9 mg/dL (0.5-1.5); POTASSIUM 4.1 mmol/L (3.5-5.1)
[2023-08-11 04:24] LABS: ALBUMIN 3.4 g/dL (3.5-5.0); BILIRUBIN,TOTAL 0.5 mg/dL (0.2-1.0); TOTAL PROTEIN, SERUM 7.1 g/dL (6.0-8.3)
[2023-08-11] MEDS ORDERED: KETOROLAC 30MG VIAL (30MG/ML) ONE (04:34)
[2023-08-11] MEDS ORDERED: KETOROLAC 30MG VIAL (30MG/ML) IVP ONE (05:00)
[2023-08-11 05:19] LABS: APPEARANCE,URINE CLEAR (CLEAR); BILIRUBIN,URINE NEGATIVE (NEGATIVE); COLOR,URINE LIGHT-YELLOW (YELLOW); GLUCOSE, URINE (UA) >=1000 mg/dL (NEGATIVE); KETONES,URINE NEGATIVE (NEGATIVE); LEUKOCYTE ESTERASE ,URINE NEGATIVE Leu/uL (NEGATIVE); NITRATE,URINE NEGATIVE (NEGATIVE); OCCULT BLOOD,URINE NEGATIVE (NEGATIVE); PH,URINE 5.5 (5.0-8.0); PROTEIN,URINE NEGATIVE (NEGATIVE); UROBILINOGEN,URINE 0.2 mg/dL (0.2-1.0)
[2023-08-11 05:21] LABS: ADD UA MICROSCOPIC YES
[2023-08-11 05:23] LABS: BACTERIA,URINE RARE /HPF (None Seen); RBC,URINE 0-1 /HPF (0-1); SQUAMOUS EPITHELIAL CELL,UR RARE /HPF (0-2); WBC,URINE 0-1 /HPF (0-1)
[2023-08-11 05:48] VITALS: BP 124/62; PULSE 74; RESP 18; O2SAT 97
[2023-08-11] MEDS ORDERED: OMEP40CA21 PO (06:37)
[2023-08-11] MEDS ORDERED: DICY20TA2 PO (06:37)
== END 2023-08-11 06:45 | disposition home or self-care (01) ==
LOC: EDH 03:23
DX: R10.12 Left upper quadrant pain (principal); I10 Essential (primary) hypertension; E11.9 Type 2 diabetes mellitus without complications; E78.00 Pure hypercholesterolemia, unspecified; H40.9 Unspecified glaucoma; K21.9 Gastro-esophageal reflux disease without esophagitis; M19.90 Unspecified osteoarthritis, unspecified site; Z79.82 Long term (current) use of aspirin; Z79.84 Long term (current) use of oral hypoglycemic drugs; Z79.899 Other long term (current) drug therapy; Z98.890 Other specified postprocedural states; Z88.3 Allergy status to other anti-infective agents
CPT/HCPCS: 99285; 74177; 96374; 84484; 80053; 83690; 85025; 81001; 36415; 93005; 96372; J1885; J0500

== ENCOUNTER 2023-11-24 23:28 | Emergency (ER) | payer MEDICARE ==
[~2023-11-24] VITALS: Ht 172.7 cm; Wt 114.3 kg
[~2023-11-24 23:28] MED LIST changes: +DICY20TA2 PO; +OMEP40CA21 PO
[2023-11-24 23:53] LABS: BASOPHILS # (AUTO) 0.04 K/uL (0.00-0.20); BASOPHILS % (AUTO) 0.5 % (0.0-5.0); EOSINOPHILS % (AUTO) 2.6 % (0.0-8.0); HEMATOCRIT 47.4 % (42-54); IMMATURE GRANULOCYTE ABSOLUTE 0.04 K/uL (0-1); LYMPHOCYTES % (AUTO) 25.4 % (21.0-51.0); MEAN CORPUSCULAR HEMOGLOBIN 31.1 pg (27.0-33.0); MEAN CORPUSCULAR HGB CONC 33.5 g/dL (32.0-36.0); MEAN CORPUSCULAR VOLUME 92.6 fL (79-99); MONOCYTES # (AUTO) 0.5 K/uL (0.1-1.0); MONOCYTES % (AUTO) 6.8 % (3.0-13.0); NEUTROPHILS % (AUTO) 64.2 % (40.0-77.0); PLATELET COUNT (AUTO) 220 K/uL (130-400); RED BLOOD CELL COUNT(AUTO) 5.12 MIL/uL (4.50-6.20); RED CELL DISTRIBUTION WIDTH 13.2 % (11.0-15.5); WHITE BLOOD COUNT (AUTO) 7.8 K/uL (4.8-10.8)
[2023-11-24 23:57] LABS: ADD UA MICROSCOPIC YES; APPEARANCE,URINE CLEAR (CLEAR); BILIRUBIN,URINE NEGATIVE (NEGATIVE); COLOR,URINE COLORLESS (YELLOW); GLUCOSE, URINE (UA) >=1000 mg/dL (NEGATIVE); KETONES,URINE NEGATIVE (NEGATIVE); LEUKOCYTE ESTERASE ,URINE NEGATIVE Leu/uL (NEGATIVE); NITRATE,URINE NEGATIVE (NEGATIVE); OCCULT BLOOD,URINE NEGATIVE (NEGATIVE); PROTEIN,URINE NEGATIVE (NEGATIVE); UROBILINOGEN,URINE 0.2 mg/dL (0.2-1.0)
[2023-11-24 23:58] LABS: MUCUS,URINE RARE LPF (None Seen); WBC,URINE 0-1 /HPF (0-1)
[2023-11-25] MEDS: MORPHINE 2 MG SYG IVP ONE
[2023-11-25] MEDS: FAMOTIDINE 20MG VIAL IV ONE (00:05)
[2023-11-25] MEDS: MAG/ALUM/SIMETH 30 ML UDCUP PO ONE (00:05)
[2023-11-25] MEDS: LIDOCAINE HCL 2% VISCOUS 15 ML UDCUP PO ONE (00:05)
[2023-11-25] MEDS: METOCLOPRAMIDE 10 MG/2 ML VIAL IVP ONE (00:05)
[2023-11-25] MEDS: DICYCLOMINE HCL 10 MG/5 ML ML PO ONE (00:05)
[2023-11-25 00:09] LABS: CREATININE 0.8 mg/dL (0.5-1.5); POTASSIUM 4.2 mmol/L (3.5-5.1)
[2023-11-25 00:14] LABS: ALBUMIN 3.5 g/dL (3.5-5.0); BILIRUBIN,TOTAL 0.5 mg/dL (0.2-1.0); TOTAL PROTEIN, SERUM 6.8 g/dL (6.0-8.3)
[2023-11-25 02:55] VITALS: BP 124/53; PULSE 65; RESP 14; O2SAT 97
[2023-11-25] MEDS ORDERED: METO-296 PO (03:34)
[2023-11-25] MEDS ORDERED: PANT40TA PO (03:34)
== END 2023-11-25 03:40 | disposition home or self-care (01) ==
LOC: EDH 23:28
DX: K29.70 Gastritis, unspecified, without bleeding (principal); I10 Essential (primary) hypertension; E78.00 Pure hypercholesterolemia, unspecified; E11.9 Type 2 diabetes mellitus without complications; K21.9 Gastro-esophageal reflux disease without esophagitis; M19.90 Unspecified osteoarthritis, unspecified site; Z88.8 Allergy status to other drugs, medicaments and biological substances; Z79.4 Long term (current) use of insulin; Z79.84 Long term (current) use of oral hypoglycemic drugs; Z79.899 Other long term (current) drug therapy
CPT/HCPCS: 99285; 74176; 96365; 71045; 96366; 96375; 84484 ×4; 80053; 83690; 85025; 83605; 81001; 36415 ×2; 93005 ×2; 76705; J3490; J2765; J2270

== ENCOUNTER 2024-02-22 06:36 | Emergency (ER) | payer MEDICARE ==
[~2024-02-22] VITALS: Ht 172.7 cm; Wt 113.4 kg
[~2024-02-22 06:36] MED LIST changes: +METO-296 PO; +PANT40TA PO
[2024-02-22 07:01] LABS: BASOPHILS # (AUTO) 0.02 K/uL (0.00-0.20); BASOPHILS % (AUTO) 0.3 % (0.0-5.0); EOSINOPHILS # (AUTO) 0.19 K/uL (0.00-0.70); EOSINOPHILS % (AUTO) 2.5 % (0.0-8.0); HEMATOCRIT 46.3 % (42-54); IMMATURE GRANULOCYTE ABSOLUTE 0.04 K/uL (0-1); LYMPHOCYTES # (AUTO) 1.7 K/uL (1.0-4.8); LYMPHOCYTES % (AUTO) 22.6 % (21.0-51.0); MEAN CORPUSCULAR HEMOGLOBIN 30.5 pg (27.0-33.0); MEAN CORPUSCULAR VOLUME 92.4 fL (79-99); MONOCYTES # (AUTO) 0.5 K/uL (0.1-1.0); MONOCYTES % (AUTO) 6.2 % (3.0-13.0); NEUTROPHILS # (AUTO) 5.2 K/uL (1.8-7.7); NEUTROPHILS % (AUTO) 67.9 % (40.0-77.0); PLATELET COUNT (AUTO) 198 K/uL (130-400); RED BLOOD CELL COUNT(AUTO) 5.01 MIL/uL (4.50-6.20); RED CELL DISTRIBUTION WIDTH 13.3 % (11.0-15.5); WHITE BLOOD COUNT (AUTO) 7.7 K/uL (4.8-10.8)
[2024-02-22 07:13] LABS: ALBUMIN 3.5 g/dL (3.5-5.0); BILIRUBIN,TOTAL 0.6 mg/dL (0.2-1.0); CREATININE 0.8 mg/dL (0.5-1.3); POTASSIUM 4.2 mmol/L (3.5-5.1); TOTAL PROTEIN, SERUM 7.2 g/dL (6.0-8.3)
[2024-02-22 07:15] LABS: APPEARANCE,URINE CLEAR (CLEAR); BILIRUBIN,URINE NEGATIVE (NEGATIVE); COLOR,URINE LIGHT-YELLOW (YELLOW); GLUCOSE, URINE (UA) TRACE mg/dL (NEGATIVE); KETONES,URINE NEGATIVE (NEGATIVE); LEUKOCYTE ESTERASE ,URINE 75 Leu/uL (NEGATIVE); NITRATE,URINE NEGATIVE (NEGATIVE); OCCULT BLOOD,URINE LARGE (NEGATIVE); PROTEIN,URINE 10 mg/dL (NEGATIVE); UROBILINOGEN,URINE 0.2 mg/dL (0.2-1.0)
[2024-02-22 07:29] LABS: ADD UA MICROSCOPIC YES
[2024-02-22 07:42] LABS: BACTERIA,URINE RARE /HPF (None Seen); MUCUS,URINE RARE LPF (None Seen); RBC,URINE 26-50 /HPF (0-1); SQUAMOUS EPITHELIAL CELL,UR RARE /HPF (0-2)
[2024-02-22] MEDS ORDERED: TERB30CR8 TP (10:52)
[2024-02-22 10:56] VITALS: BP 127/66; PULSE 63; RESP 16; O2SAT 99
== END 2024-02-22 11:28 | disposition home or self-care (01) ==
LOC: EDH 06:36
DX: B37.42 Candidal balanitis (principal); I10 Essential (primary) hypertension; E11.9 Type 2 diabetes mellitus without complications; E03.9 Hypothyroidism, unspecified; E78.00 Pure hypercholesterolemia, unspecified; G47.30 Sleep apnea, unspecified; K85.90 Acute pancreatitis without necrosis or infection, unspecified; M10.9 Gout, unspecified; N20.0 Calculus of kidney; Z79.82 Long term (current) use of aspirin; Z79.84 Long term (current) use of oral hypoglycemic drugs; Z79.899 Other long term (current) drug therapy; Z98.890 Other specified postprocedural states; Z88.8 Allergy status to other drugs, medicaments and biological substances
CPT/HCPCS: 36415; 74176; 80053; 81001; 82948; 85025; 87088

== ENCOUNTER 2024-06-13 01:01 | Emergency (ER) | payer MEDICARE ==
[~2024-06-13] VITALS: Ht 172.7 cm; Wt 110.7 kg
[~2024-06-13 01:01] MED LIST changes: -ROSU10TA28 PO; +ROSU10TA72 PO; +TERB30CR8 TP
[2024-06-13 01:25] LABS: BASOPHILS # (AUTO) 0.02 K/uL (0.00-0.20); BASOPHILS % (AUTO) 0.2 % (0.0-5.0); EOSINOPHILS # (AUTO) 0.23 K/uL (0.00-0.70); HEMATOCRIT 47.7 % (42-54); IMMATURE GRANULOCYTE ABSOLUTE 0.05 K/uL (0-1); LYMPHOCYTES # (AUTO) 1.8 K/uL (1.0-4.8); LYMPHOCYTES % (AUTO) 15.6 % (21.0-51.0); MEAN CORPUSCULAR HEMOGLOBIN 30.6 pg (27.0-33.0); MEAN CORPUSCULAR HGB CONC 33.5 g/dL (32.0-36.0); MEAN CORPUSCULAR VOLUME 91.2 fL (79-99); MONOCYTES # (AUTO) 0.7 K/uL (0.1-1.0); MONOCYTES % (AUTO) 6.4 % (3.0-13.0); NEUTROPHILS # (AUTO) 8.6 K/uL (1.8-7.7); NEUTROPHILS % (AUTO) 75.4 % (40.0-77.0); PLATELET COUNT (AUTO) 224 K/uL (130-400); RED BLOOD CELL COUNT(AUTO) 5.23 MIL/uL (4.50-6.20); RED CELL DISTRIBUTION WIDTH 13.6 % (11.0-15.5); WHITE BLOOD COUNT (AUTO) 11.4 K/uL (4.8-10.8)
[2024-06-13 01:33] LABS: CREATININE 0.8 mg/dL (0.5-1.3)
[2024-06-13 01:41] LABS: APPEARANCE,URINE CLEAR (CLEAR); BILIRUBIN,URINE NEGATIVE (NEGATIVE); COLOR,URINE LIGHT-YELLOW (YELLOW); GLUCOSE, URINE (UA) >=1000 mg/dL (NEGATIVE); KETONES,URINE NEGATIVE (NEGATIVE); LEUKOCYTE ESTERASE ,URINE NEGATIVE Leu/uL (NEGATIVE); NITRATE,URINE NEGATIVE (NEGATIVE); OCCULT BLOOD,URINE NEGATIVE (NEGATIVE); PROTEIN,URINE NEGATIVE (NEGATIVE); RBC,URINE 0-1 /HPF (0-1); UROBILINOGEN,URINE 0.2 mg/dL (0.2-1.0); WBC,URINE 0-1 /HPF (0-1)
[2024-06-13 01:50] LABS: AMPHET/METH SCREEN,URINE NEGATIVE (NEGATIVE); BARBITURATE SCREEN, URINE NEGATIVE (NEGATIVE); BENZODIAZEPINES SCREEN,URINE NEGATIVE (NEGATIVE); CANNABINOID SCREEN,URINE NEGATIVE (NEGATIVE); COCAINE SCREEN,URINE NEGATIVE (NEGATIVE); OPIATE SCREEN,URINE NEGATIVE (NEGATIVE); PHENCYCLIDINE SCREEN,URINE NEGATIVE (NEGATIVE)
[2024-06-13] MEDS ORDERED: IOHEXOL-350 75 ML VIAL IV ONE (02:08)
[2024-06-13] MEDS: 0.9%NACL 1000ML 1,000 ML IV ONE (04:17)
[2024-06-13] MEDS: ketOROlac 30MG VIAL (30MG/ML) IVP ONE (04:18)
[2024-06-13] MEDS ORDERED: TAMS-1 PO (04:36)
[2024-06-13] MEDS ORDERED: KETO10 PO (04:36)
[2024-06-13 04:44] VITALS: BP 118/72; PULSE 72; RESP 20; TEMP 98.6; O2SAT 98
== END 2024-06-13 05:07 | disposition home or self-care (01) ==
LOC: EDH 01:01
DX: S76.012A Strain of muscle, fascia and tendon of left hip, initial encounter (principal); N20.0 Calculus of kidney; E03.9 Hypothyroidism, unspecified; E11.36 Type 2 diabetes mellitus with diabetic cataract; E78.00 Pure hypercholesterolemia, unspecified; G47.30 Sleep apnea, unspecified; I10 Essential (primary) hypertension; I25.10 Atherosclerotic heart disease of native coronary artery without angina pectoris; I42.9 Cardiomyopathy, unspecified; K21.9 Gastro-esophageal reflux disease without esophagitis; M10.9 Gout, unspecified; Z79.82 Long term (current) use of aspirin; Z79.84 Long term (current) use of oral hypoglycemic drugs; Z79.899 Other long term (current) drug therapy; Z96.643 Presence of artificial hip joint, bilateral; Z98.890 Other specified postprocedural states; X58.XXXA Exposure to other specified factors, initial encounter; Y93.89 Activity, other specified; Y92.89 Other specified places as the place of occurrence of the external cause; Y99.8 Other external cause status
CPT/HCPCS: 99285; 74177; 96374; 96361; 82550; 80048; 80305; 85025; 36415; 81001; J7030; J1885; Q9967

== ENCOUNTER 2024-08-09 20:33 | Emergency (ER) | payer MEDICARE ==
[~2024-08-09] VITALS: Ht 172.7 cm; Wt 112.0 kg
[~2024-08-09 20:33] MED LIST changes: +KETO10 PO; +TAMS-1 PO
[2024-08-09] MEDS: hydrOXYzine 25 MG TABLET PO STA (21:13)
[2024-08-09 21:16] LABS: BASOPHILS # (AUTO) 0.03 K/uL (0.00-0.20); BASOPHILS % (AUTO) 0.3 % (0.0-5.0); EOSINOPHILS # (AUTO) 0.17 K/uL (0.00-0.70); EOSINOPHILS % (AUTO) 1.9 % (0.0-8.0); HEMATOCRIT 46.5 % (42-54); IMMATURE GRANULOCYTE ABSOLUTE 0.03 K/uL (0-1); LYMPHOCYTES # (AUTO) 1.4 K/uL (1.0-4.8); LYMPHOCYTES % (AUTO) 15.9 % (21.0-51.0); MEAN CORPUSCULAR HEMOGLOBIN 30.1 pg (27.0-33.0); MEAN CORPUSCULAR HGB CONC 33.3 g/dL (32.0-36.0); MEAN CORPUSCULAR VOLUME 90.3 fL (79-99); MONOCYTES # (AUTO) 0.6 K/uL (0.1-1.0); MONOCYTES % (AUTO) 6.4 % (3.0-13.0); NEUTROPHILS # (AUTO) 6.7 K/uL (1.8-7.7); NEUTROPHILS % (AUTO) 75.2 % (40.0-77.0); PLATELET COUNT (AUTO) 235 K/uL (130-400); RED BLOOD CELL COUNT(AUTO) 5.15 MIL/uL (4.50-6.20); RED CELL DISTRIBUTION WIDTH 13.7 % (11.0-15.5); WHITE BLOOD COUNT (AUTO) 8.9 K/uL (4.8-10.8)
[2024-08-09 21:26] LABS: CREATININE 0.7 mg/dL (0.5-1.3); POTASSIUM 3.6 mmol/L (3.5-5.1)
[2024-08-09 22:49] LABS: APPEARANCE,URINE CLEAR (CLEAR); BILIRUBIN,URINE NEGATIVE (NEGATIVE); COLOR,URINE LIGHT-YELLOW (YELLOW); GLUCOSE, URINE (UA) >=1000 mg/dL (NEGATIVE); KETONES,URINE NEGATIVE (NEGATIVE); LEUKOCYTE ESTERASE ,URINE NEGATIVE Leu/uL (NEGATIVE); NITRATE,URINE NEGATIVE (NEGATIVE); OCCULT BLOOD,URINE NEGATIVE (NEGATIVE); PROTEIN,URINE NEGATIVE (NEGATIVE); UROBILINOGEN,URINE 0.2 mg/dL (0.2-1.0)
[2024-08-09 22:50] LABS: ADD UA MICROSCOPIC YES
[2024-08-09] MEDS ORDERED: HYDR-3421 PO (23:03)
[2024-08-09 23:06] LABS: BACTERIA,URINE None Seen /HPF (None Seen); RBC,URINE 0-1 /HPF (0-1); SQUAMOUS EPITHELIAL CELL,UR None Seen /HPF (0-2); WBC,URINE 0-1 /HPF (0-1)
[2024-08-09 23:25] VITALS: BP 126/54; PULSE 73; RESP 17; TEMP 98.4; O2SAT 97
== END 2024-08-09 23:26 | disposition home or self-care (01) ==
LOC: EDH 20:33
DX: F41.9 Anxiety disorder, unspecified (principal); I25.10 Atherosclerotic heart disease of native coronary artery without angina pectoris; E03.9 Hypothyroidism, unspecified; E11.36 Type 2 diabetes mellitus with diabetic cataract; E78.00 Pure hypercholesterolemia, unspecified; I10 Essential (primary) hypertension; K21.9 Gastro-esophageal reflux disease without esophagitis; Z79.82 Long term (current) use of aspirin; Z79.84 Long term (current) use of oral hypoglycemic drugs; Z79.899 Other long term (current) drug therapy
CPT/HCPCS: 36415; 70450; 80048; 81001; 85025

== ENCOUNTER 2025-02-07 13:46 | Emergency (ER) | payer MEDICARE ==
[~2025-02-07] VITALS: Ht 172.7 cm; Wt 113.9 kg
[~2025-02-07 13:46] MED LIST changes: +HYDR-3421 PO; -TAMS-1 PO; +TAMS-55 PO
--- NOTE | 2025-02-07 13:56 | ERN ---
ED Note History of Present Illness Stated Complaint: WEAKNESS Chief Complaint: Weakness Time Seen by MD: 15:50 Dictation: 65-YEAR-OLD MALE COMING IN VIA EMS WITH COMPLAINTS OF FEELING LIGHTHEADED SHORTNESS A BREATH AND GENERALIZED BODY WEAKNESS ONSET WAS YESTERDAY. HE STATES HE BENT OVER TO [employer] A TOWEL THAT HE HAD DROPPED AND WHEN HE DID HE GOT ALL LIGHTHEADED FELT DIZZY. SAID HE SAT UP AND DRANK SOME WATER WITH MEDITERRANEAN SEA SALT THAT MADE HIM FEEL BETTER AFTER ABOUT AN HOUR AND A HALF. HE SAID HE HAS HAD JUST FEELING VERY GENERALIZED BODY WEAKNESS SINCE YESTERDAY. PATIENT STATES SHE HAS SIGNIFICANT HISTORY OF CHF CARDIOMYOPATHY/CAD DIABETES HYPERTENSION GOUT NO PACEMAKER PATIENT OF DR. OCAMPO. NIH IS 0 AT THIS TIME. PATIENT ALSO STATES HE USES A CPAP MACHINE AT NIGHT AND HAS PRESSURE TO HIS FRONTAL SINUSES AND HIS ETHMOID SINUSES, MY WORDS, FOR THE LAST SEVERAL DAYS. Allergies: Coded Allergies: caffeine (Unverified Allergy, Unknown, 04/17/19) Home Meds Active Scripts Levofloxacin (Levofloxacin) 500 Mg Tablet, 1 TAB PO DAILY for 10 Days, #10 TAB 0 Refills Prov:SOL GUY NP 02/07/25 Hydroxyzine HCl (Hydroxyzine HCl) 25 Mg Tablet, 1 TAB PO BID for anxiety for 30 Days, #60 TAB 0 Refills Prov:ALETA LOBO NP 08/09/24 Tamsulosin HCl (Flomax) 0.4 Mg Cap.er.24h, 0.4 MG PO DAILY for 5 Days, #5 CAPSULE. Prov:NIMESH CRONIN MD 06/13/24 Ketorolac Tromethamine (Toradol) 10 Mg Tab, 10 MG PO tid PRN for PAIN for 5 Days, #15 TAB Prov:NIMESH CRONIN MD 06/13/24 Terbinafine HCl (Terbinafine HCl) 1 % Cream..g., 1 APPL TP BID for 14 Days, #30 G 0 Refills Prov:BUSTER STEINBERG MD 02/22/24 Pantoprazole Sodium (Protonix) 40 Mg Tablet., 40 MG PO DAILY, #30 TAB 2 Refills Prov:MICHELLE LAWSON Sr., MD 11/25/23 Metoclopramide HCl (Reglan) 10 Mg Tablet, 10 MG PO QID, #120 TAB 2 Refills Prov:MICHELLE LAWSON Sr., MD 11/25/23 Omeprazole (Omeprazole) 40 Mg Capsule.dr, 40 MG PO DAILY, #30 CAP Prov:PANCHO FELIZ MD 08/11/23 Dicyclomine HCl (Bentyl) 20 Mg Tab, 20 MG PO TIDP PRN for PAIN, #60 TAB Prov:PANCHO FELIZ MD 08/11/23 Reported Medications [Vitamin B12] No Conflict Check, 1000 TAB PO DAILY 05/13/19 Dicyclomine HCl (Dicyclomine HCl) 20 Mg Tablet, 20 MG PO BID, TAB 05/12/19 Rosuvastatin Calcium (Rosuvastatin Calcium) 10 Mg Tablet, 10 MG PO PM, TAB 05/12/19 Atorvastatin Calcium (Atorvastatin Calcium) 40 Mg Tablet, 40 MG PO PM, TAB 05/12/19 Ergocalciferol (Vitamin D2) (Vitamin D2) 50,000 Unit Capsule, 11282 UNIT PO QWEEK, CAP 05/12/19 Allopurinol (Allopurinol) 300 Mg Tablet, 300 MG PO DAILY, TAB 05/12/19 Lisinopril (Lisinopril) 20 Mg Tablet, 20 MG PO AM, TAB 05/12/19 Metformin HCl (Metformin HCl ER) 500 Mg Tab.er.24, 500 MG PO BID 05/12/19 Insulin NPH Hum/Reg Insulin Hm (Novolin 70-30 Flexpen) 100 Unit/1 Ml Insuln.pen, 25 UNIT SQ PM, SYRINGE 05/12/19 Insulin NPH Hum/Reg Insulin Hm (Novolin 70-30 Flexpen) 100 Unit/1 Ml Insuln.pen, 35 UNIT SQ AM, SYRINGE 05/12/19 Aspirin (Aspirin) 81 Mg Tab.chew, 81 MG PO DAILY, TAB.CHEW 05/12/19 Latanoprost/Pf (Latanoprost 0.005% Eye Drop) 7.5 Ml Drops, 7.5 ML OU PM, DROP 05/12/19 Brimonidine Tartrate (Brimonidine Tartrate) 5 Ml Drops, 5 ML OU PM, DROP 05/12/19 Timolol Maleate (Timoptic 0.5% Ophth Soln) 20 Drop/Ml Opsol, 20 DROP OU BID, DROP 05/12/19 Past Medical History Past Medical History: Anxiety, CAD, Diabetes-Type II, GERD, High Cholesterol, Heart Disease, Hypertension, Hypothyroid Additional Past Medical Hx: IBS, CARDIOMYOPATHY, SLEEP APNEA, GOUT Surgical History: Other Surgical History Other: BILATERAL HIP REPLACEMENT, CATARACT Family History: CAD, DM, HTN Social History: Negative, Lives with family, Other RN Note Reviewed/Agreed w/PFSH: Yes Review of System Dictation CONSTITUTIONAL: NEGATIVE EXCEPT FOR HPI GENERALIZED BODY WEAKNESS HEAD/FACE: NEGATIVE EXCEPT FOR HPI EENT: NEGATIVE EXCEPT FOR HPI RESPIRATORY: NEGATIVE EXCEPT FOR HPI SHORT OF BREATH GASTROINTESTINAL/ABDOMINAL: NEGATIVE EXCEPT FOR HPI GENITOURINARY: NEGATIVE EXCEPT FOR HPI MUSCULOSKELETAL: NEGATIVE EXCEPT FOR HPI INTEGUMENTARY: NEGATIVE EXCEPT FOR HPI NEUROLOGICAL/PSYCH: NEGATIVE EXCEPT FOR HPI HEMATOLOGIC/LYMPHATIC: NEGATIVE EXCEPT FOR HPI ALL SYSTEMS NEGATIVE, EXCEPT NOTED ABOVE. 13 POINT REVIEW OF SYSTEMS ASSESSED AND ALL NEGATIVE EXCEPT FOR ABOVE. Initial Vital Sign VS Vital Signs Date Time Temp Pulse Resp B/P (MAP) Pulse Ox O2 Delivery O2 Flow Rate FiO2 02/07/25 13:52 97.9 70 20 134/71 99 02/07/25 14:18 Room Air* 0 21 Physical Exam Dictation VITAL SIGNS REVIEWED GENERAL APPEARANCE: ALERT, ORIENTED X 3, PATIENT APPEARS WEAK AND DEBILITATED. HEAD AND FACE: NON-TRAUMATIC. BILATERAL FRONTAL AND ETHMOID TENDERNESS WITH PALPATION GREATER ON THE RIGHT EYES: PERRL, PINK CONJUNCTIVAS, EYELID NO TRAUMA, ANTERIOR CHAMBER WITH ARCUS SENILIS. EARS: PINNAS INTACT AND NO SIGNS OF TRAUMA OR ERYTHEMA EAR CANALS CLEAR AND NO DISCHARGE TM NO ERYTHEMA NOSE: NO DISCHARGE, NO BLEEDING. OROPHARYNX: MOUTH NORMAL, TONGUE PINK, PHARYNX CLEAR,NO ERYTHEMA, TONSILS NO EXUDATES, NO ABSCESSES NOTED, MUCOUS MEMBRANE MOIST NECK: SUPPLE, NON-TENDER, NO THYROMEGALY, NO MASSES, NO JVD, NO BRUITS BREAST:DEFERRED CHEST:NO TENDERNESS, NO CREPITUS, NO PARADOXICAL MOVEMENT, NO RETRACTIONS LUNGS:CLEAR, WELL-VENTILATED, SYMMETRIC, NO RALES, NO WHEEZING, NO RHONCHI, NO STRIDOR, GOOD BREATH SOUNDS BILATERALLY HEART: REGULAR RATE, REGULAR RHYTHM, NO MURMUR, NO GALLOPS VASCULAR: N 1+ PERIPHERAL EDEMA, LOWER EXTREMITY ABDOMEN: SOFT, POSITIVE BOWEL SOUNDS, NONDISTENDED, NO GUARDING, NONTENDER, NO REBOUND, NO MASSES NO HEPATOMEGALY, NO SPLENOMEGALY, NO SHAW'S SIGN, NO HERNIAS. RECTAL: DEFERRED GENITAL: DEFERRED NEUROLOGICAL: NORMAL SPEECH, MOTOR FUNCTION INTACT, SENSORY FUNCTION INTACT MUSCULOSKELETAL: NECK NONTENDER, FULL RANGE OF MOTION, BACK NONTENDER, FULL RANGE OF MOTION, EXTREMITIES: NONTENDER, FULL RANGE OF MOTION SKIN: COLOR PINK, DRY, NO TURGOR, NO RASH, NO LACERATIONS, NO ABRASIONS, NO CONTUSIONS. LYMPHATIC: DEFERRED Results (Laboratory/Radiology) Laboratory/Radiology Laboratory Tests Test 02/07/25 14:17 02/07/25 14:27 Urine Color LIGHT-YELLOW (YELLOW) Urine Appearance CLEAR (CLEAR) Urine pH 7.5 (5.0-8.0) Urine Specific [place] 1.024 (1.001-1.031) Urine Protein NEGATIVE mg/dL (NEGATIVE) Urine Glucose (UA) >=1000 mg/dL (NEGATIVE) H Urine Ketones 40 mg/dL (NEGATIVE) H Urine Occult Blood NEGATIVE (NEGATIVE) Urine Nitrate NEGATIVE (NEGATIVE) Urine Bilirubin NEGATIVE mg/dL (NEGATIVE) Urine Urobilinogen 0.2 mg/dL (0.2-1.0) Urine Leukocyte Esterase NEGATIVE [place]/uL Urine RBC 0-1 /HPF (0-1) Urine WBC 0-1 /HPF (0-1) Urine Bacteria None /HPF (None Seen) White Blood Count 9.7 K/uL (4.8-10.8) Red Blood Count 5.29 MIL/uL (4.50-6.20) Hemoglobin 16.2 g/dL (14.0-18.0) Hematocrit 49.6 % (42-54) Mean Corpuscular Volume 93.8 fL (79-99) Mean Corpuscular Hemoglobin 30.6 pg (27.0-33.0) Mean Corpuscular Hemoglobin Concent 32.7 g/dL (32.0-36.0) Red Cell Distribution Width 13.5 % (11.0-15.5) Platelet Count 217 K/uL (130-400) Mean Platelet Volume 10.9 fL (7.5-10.5) H Immature Granulocyte % (Auto) 0.2 % (0-1) Neutrophils (%) (Auto) 78.8 % (40.0-77.0) H Lymphocytes (%) (Auto) 13.7 % (21.0-51.0) L Monocytes (%) (Auto) 5.6 % (3.0-13.0) Eosinophils (%) (Auto) 1.5 % (0.0-8.0) Basophils (%) (Auto) 0.2 % (0.0-5.0) Neutrophils # (Auto) 7.6 K/uL (1.8-7.7) Lymphocytes # (Auto) 1.3 K/uL (1.0-4.8) Monocytes # (Auto) 0.5 K/uL (0.1-1.0) Eosinophils # (Auto) 0.15 K/uL (0.00-0.70) Basophils # (Auto) 0.02 K/uL (0.00-0.20) Absolute Immature Granulocyte (auto 0.02 K/uL (0-1) Nucleated Red Blood Cells 0.0 % (0.0-0.19) Sodium Level 135 mmol/L (136-145) L Potassium Level 4.0 mmol/L (3.5-5.1) Chloride Level 99 mmol/L (101-111) L Carbon Dioxide Level 30 mmol/L (21-32) Blood Urea Nitrogen 26 mg/dL (7-18) H Creatinine 1.1 mg/dL (0.5-1.3) Glomerular Filtration Rate Calc 75 mL/min (>90) Random Glucose 156 mg/dL (70-105) H Total Calcium 9.1 mg/dL (8.5-10.1) Magnesium Level 2.20 mg/dL (1.80-2.40) Troponin I High Sensitivity 7 ng/L (4-75) B-Type Natriuretic Peptide 22 pg/mL (0-100) INDICATION: SHORTNESS A BREATH COMPARISON: None FINDINGS: Heart size is normal. The pulmonary vascularity and navjot appear normal. No abnormal pulmonary parenchymal opacity or consolidation identified. No significant pleural effusion noted. No pneumothorax detected. IMPRESSION: No radiographic evidence for any acute cardiopulmonary process. Labs Reviewed?: Yes EKG Comment: EKG SINUS RHYTHM/HEART RATE 71/LEFT VENTRICULAR HYPERTROPHY ED Course ED Course Orders Procedure Category Date Status Time Cbc With Differential LAB 02/07/25 Complete 13:52 B-Type Natriuretic LAB 02/07/25 Complete Peptide 13:52 Chest 1vw RAD 02/07/25 Resulted 13:52 12 Lead Ekg Tracing- EKG 02/07/25 Resulted Technical 13:52 Magnesium LAB 02/07/25 Complete 13:52 Troponin I High LAB 02/07/25 Complete Sensitivity 13:52 Urinalysis Profile LAB 02/07/25 Complete 13:52 Basic Metabolic Panel LAB 02/07/25 Complete 13:52 Ceftriaxone 1g Vial PHA 02/07/25 Complete (Rocephine 1g Inj) 16:34 Ketorolac PHA 02/07/25 Complete Tromethamine 30mg/Ml 17:00 Current Medications Medications (Trade) Dose Ordered Sig/Isaiah Route PRN Reason Start Time Stop Time Status Last Admin Dose Admin Ceftriaxone Sodium (ROCEphine 1G INJ) 1 gm ONCE STAT IVP 02/07/25 16:34 02/07/25 16:46 DC 02/07/25 17:38 Ketorolac Tromethamine (toRADol) 30 mg ONCE ONCE IVP 02/07/25 17:00 02/07/25 17:01 DC 02/07/25 17:38 Vital Signs Date Time Temp Pulse Resp B/P (MAP) Pulse Ox O2 Delivery O2 Flow Rate FiO2 02/07/25 17:42 97.9 68 20 128/68 99 Room Air* 0 21 02/07/25 14:18 97.9 70 20 134/71 99 Room Air* 0 21 02/07/25 13:52 97.9 70 20 134/71 99 1635/PATIENT WILL BE TREATED FOR ACUTE SINUSITIS. HE IS AWARE HE NEEDS TO INCREASE HIS FLUIDS TAKE LEVAQUIN DIRECTED. SEE HIS PRIMARY CARE DOCTOR TOMORROW FOR FOLLOW UP AND MANAGEMENT. HEART Score Response (Comments) Value EKG: Repolarization changes 1 Age: 45-65yrs (+1) 1 Risk Factors: 3+ risk factors (+2) 2 Initial Troponin: Normal limit (0) 0 Total 4 Medical Decision Making MDM MDM: DIFFERENTIAL DIAGNOSIS: CS/AMI/FLUID OVERLOAD/PNEUMONIA/BRONCHITIS/SINUSITIS/ELECTROLYTE IMBALANCE/DEHYDRATION/ANXIETY RATIONALE: TESTS CONSIDERED AND ORDERED SECONDARY TO SHARED DECISION MAKING INCLUDE: EKG/LABS/RADIOLOGY PREVIOUS OUTSIDE RECORDS REVIEWED: OLD ER VISITS. RISK OF COMPLICATION AND/OR MORBIDITY OR MORTALITY OF PATIENT MANAGEMENT: NONE MEDICATIONS-PER MEDICATION RECONCILIATION NEED FOR HOSPITALIZATION: PATIENT DOES NOT MEET CRITERIA FOR HOSPITALIZATION. NO NEED FOR EMERGENCY MAJOR/MINOR SURGERY: NO THERE ARE NO SOCIAL CONCERNS WITH THIS PATIENT. PRESCRIPTION DRUG MANAGEMENT LEVAQUIN FOR CHRONIC SINUSITIS PRESCRIPTIONS WILL INCLUDE SYMPTOMATIC CARE PATIENT'S PRIOR EXTERNAL MEDICAL RECORDS FROM OTHER ER VISITS WERE REVIEWED BY ME INDICATED. PRIOR TESTING AND RESULTS FROM PREVIOUS VISITS WERE REVIEWED. PRIOR TESTS WERE TAKEN INTO ACCOUNT WITH MEDICAL DECISION MAKING AND RESOURCE UTILIZATION, INDEPENDENT HISTORIAN/HISTORIANS WERE USED TO OBTAIN COMPLETE MEDICAL HISTORY. I INDEPENDENTLY INTERPRETED THE TEST THAT WERE PERFORMED, RESULTS WERE REVIEWED BY ME AND CONSIDERED FINDINGS ON RADIOLOGY IF ORDERED. MEDICAL MANAGEMENT AND EXAMINATION INTERPRETATION DISCUSSIONS WERE HAD BY ME WITH OTHER QUALIFIED HEALTHCARE PROFESSIONALS INDICATED FOR THE PATIENT'S CARE. DX & DISP Disposition: Discharge Departure Impression: Primary Impression: Acute sinusitis Additional Impressions: Mild dehydration, Hypochloremia Condition: Stable Scripts Levofloxacin (Levofloxacin) 500 Mg Tablet 1 TAB PO DAILY for 10 Days, #10 TAB 0 Refills Prov: SOL GUY NP 02/07/25 Referrals: CLAUDIA GORDON MD (PCP) Time of Disposition: 16:37 I have reviewed the case, and I agree with, Diagnosis and Plan I performed a substantive portion of the visit. I have reviewed and personally made and approve the management plan that is documented in the notes by myself with MICHAEL/resident. I acknowledged full responsibility for the patient's management plan. SOL GUY NP Feb 07, 2025 13:56 ALMA SALDIVAR DO Feb 07, 2025 18:39
--- NOTE | 2025-02-07 14:21 | EKG ---
[facility] Test Date: 2025-02-07 Test Time: 14:19:26 Pat Name: JH COOK Department: ED Room: Gender: M [employer] Worker: [id number] : 1960 Requested By: SOL GUY Order Number: [id number] Reading MD: Roel Bertrand Measurements Intervals [place] Rate: 71 P: 41 DC: 202 QRS: -73 QRSD: 135 T: 36 QT: 412 QTc: 447 Interpretive Statements Sinus rhythm Nonspecific IVCD with LAD Left ventricular hypertrophy Anterior Q waves, possibly due to LVH Compared to ECG 11/25/2023 03:07:03 ST (T wave) deviation no longer present Electronically Signed On 02-07-2025 17:32:24 CDT by Roel Bertrand Please click the below link to view image of tracing.
[2025-02-07 14:35] LABS: BASOPHILS # (AUTO) 0.02 K/uL (0.00-0.20); BASOPHILS % (AUTO) 0.2 % (0.0-5.0); EOSINOPHILS # (AUTO) 0.15 K/uL (0.00-0.70); EOSINOPHILS % (AUTO) 1.5 % (0.0-8.0); HEMATOCRIT 49.6 % (42-54); IMMATURE GRANULOCYTE ABSOLUTE 0.02 K/uL (0-1); LYMPHOCYTES # (AUTO) 1.3 K/uL (1.0-4.8); LYMPHOCYTES % (AUTO) 13.7 % (21.0-51.0); MEAN CORPUSCULAR HEMOGLOBIN 30.6 pg (27.0-33.0); MEAN CORPUSCULAR HGB CONC 32.7 g/dL (32.0-36.0); MEAN CORPUSCULAR VOLUME 93.8 fL (79-99); MONOCYTES # (AUTO) 0.5 K/uL (0.1-1.0); MONOCYTES % (AUTO) 5.6 % (3.0-13.0); NEUTROPHILS # (AUTO) 7.6 K/uL (1.8-7.7); NEUTROPHILS % (AUTO) 78.8 % (40.0-77.0); PLATELET COUNT (AUTO) 217 K/uL (130-400); RED BLOOD CELL COUNT(AUTO) 5.29 MIL/uL (4.50-6.20); RED CELL DISTRIBUTION WIDTH 13.5 % (11.0-15.5); WHITE BLOOD COUNT (AUTO) 9.7 K/uL (4.8-10.8)
[2025-02-07 14:43] LABS: CREATININE 1.1 mg/dL (0.5-1.3); MAGNESIUM 2.2 mg/dL (1.80-2.40)
[2025-02-07 14:45] LABS: ADD UA MICROSCOPIC YES; APPEARANCE,URINE CLEAR (CLEAR); BILIRUBIN,URINE NEGATIVE (NEGATIVE); COLOR,URINE LIGHT-YELLOW (YELLOW); GLUCOSE, URINE (UA) >=1000 mg/dL (NEGATIVE); KETONES,URINE 40 mg/dL (NEGATIVE); LEUKOCYTE ESTERASE ,URINE NEGATIVE Leu/uL (NEGATIVE); NITRATE,URINE NEGATIVE (NEGATIVE); OCCULT BLOOD,URINE NEGATIVE (NEGATIVE); PH,URINE 7.5 (5.0-8.0); PROTEIN,URINE NEGATIVE (NEGATIVE); UROBILINOGEN,URINE 0.2 mg/dL (0.2-1.0)
[2025-02-07 14:46] LABS: RBC,URINE 0-1 /HPF (0-1); WBC,URINE 0-1 /HPF (0-1)
--- NOTE | 2025-02-07 14:53 | HMCIMG ---
PORTABLE CHEST RADIOGRAPH INDICATION: SHORTNESS A BREATH COMPARISON: None FINDINGS: Heart size is normal. The pulmonary vascularity and navjot appear normal. No abnormal pulmonary parenchymal opacity or consolidation identified. No significant pleural effusion noted. No pneumothorax detected. IMPRESSION: No radiographic evidence for any acute cardiopulmonary process.
[2025-02-07 14:57] LABS: B-TYPE NATRIURETIC PEPTIDE 22 pg/mL (0-100)
[2025-02-07] MEDS ORDERED: LEVO-70 PO (16:38)
[2025-02-07] MEDS: cefTRIAXone 1G VIAL IVP STA (17:38)
[2025-02-07] MEDS: ketOROlac 30MG VIAL (30MG/ML) IVP ONE (17:38)
[2025-02-07 17:42] VITALS: BP 128/68; PULSE 68; RESP 20; TEMP 97.9; O2SAT 99
== END 2025-02-07 17:42 | disposition home or self-care (01) ==
LOC: EDH 13:46
DX: J01.90 Acute sinusitis, unspecified (principal); E87.8 Other disorders of electrolyte and fluid balance, not elsewhere classified; E86.0 Dehydration; E03.9 Hypothyroidism, unspecified; E11.9 Type 2 diabetes mellitus without complications; E78.00 Pure hypercholesterolemia, unspecified; F41.9 Anxiety disorder, unspecified; G47.30 Sleep apnea, unspecified; I11.9 Hypertensive heart disease without heart failure; I25.10 Atherosclerotic heart disease of native coronary artery without angina pectoris; I42.9 Cardiomyopathy, unspecified; Z79.82 Long term (current) use of aspirin; Z79.84 Long term (current) use of oral hypoglycemic drugs; Z79.899 Other long term (current) drug therapy; Z96.643 Presence of artificial hip joint, bilateral; Z98.890 Other specified postprocedural states
CPT/HCPCS: 99285; 96374; 71045; 96375; 83735; 84484; 80048; 83880; 85025; 81001; 36415; 93005; J1885; J0696

== ENCOUNTER 2025-04-22 22:52 | Emergency (ER) | payer MEDICARE ==
[~2025-04-22] VITALS: Ht 172.7 cm; Wt 111.1 kg
[~2025-04-22 22:52] MED LIST changes: +LEVO-70 PO
[2025-04-23 00:03] LABS: IMMATURE GRANULOCYTE ABSOLUTE 0.03 K/uL (0-1); NUCLEATED RED BLOOD CELLS 0.0 % (0.0-0.19); PLATELET COUNT (AUTO) 215 K/uL (130-400); RED BLOOD CELL COUNT(AUTO) 5.18 MIL/uL (4.50-6.20); RED CELL DISTRIBUTION WIDTH 13.8 % (11.0-15.5); WHITE BLOOD COUNT (AUTO) 8.7 K/uL (4.8-10.8)
[2025-04-23 00:16] LABS: CREATININE 0.9 mg/dL (0.5-1.3); GLOMERULAR FILTR. RATE CALC 96.0 mL/min (>90); GLUCOSE,RANDOM 149.0 mg/dL (70-105); SODIUM SERUM 141.0 mmol/L (136-145); UREA NITROGEN, BLOOD 27.0 mg/dL (7-18)
--- NOTE | 2025-04-23 01:13 | HMCIMG ---
EXAM: CT Cervical Spine Without IV Contrast CLINICAL HISTORY: Headache. TECHNIQUE: Thin collimated axial CT images of the cervical spine were obtained with sagittal and coronal reformatted images also submitted. CT scan is done according to ALARA (As Low As Reasonably Achievable). CONTRAST: None. COMPARISON: None provided. FINDINGS: No acute fracture. Loss of normal cervical lordosis. Normal vertebral body heights. Multilevel cervical spondylosis with small marginal osteophytes. Mild to moderate disc space narrowing with circumferential disc osteophyte complex bulge at the C6-7 and C7-T1 levels, with mild bilateral neural foraminal narrowing. Multilevel mild to moderate facet arthropathy in the cervical spine. Mild diffuse osteopenia. The surrounding soft tissues are unremarkable. Small calcified focus in the left lobe of the thyroid gland. IMPRESSIONS: No acute fracture. Mild cervical spondylosis. /[place]
--- NOTE | 2025-04-23 01:16 | HMCIMG ---
EXAM: Non-contrast CT examination of the Brain CLINICAL HISTORY: Headache. TECHNIQUE: Thin collimated axial CT images of the brain were obtained, with sagittal and coronal reformatted images also submitted. CT scan done according to ALARA (As Low as Reasonably Achievable). CONTRAST USED: None. COMPARISON: CT brain dated 08/09/24. FINDINGS: Mild generalized brain atrophy. No acute intracranial abnormality is present. No acute cortical infarction, hemorrhage, mass, or mass effect. No hydrocephalus or abnormal extra-axial fluid collections. The posterior fossa is unremarkable. The skull base and calvarium are intact. The mastoid air cells are clear. Severe left maxillary and mild bilateral ethmoid sinusitis. IMPRESSION: No acute intracranial abnormality is present. Mild generalized brain atrophy. Severe left maxillary and mild bilateral ethmoid sinusitis. No significant interval change from the prior imaging. /[place]
[2025-04-23 01:47] VITALS: BP 153/60; PULSE 76; RESP 18; TEMP 98.6; O2SAT 99
[2025-04-23] MEDS ORDERED: METH-811 PO (01:58)
[2025-04-23] MEDS ORDERED: NAPR-1196 PO (01:58)
--- NOTE | 2025-04-23 01:59 | ERN ---
General Chief Complaint: Shoulder Injury/Pain Stated Complaint: SHOULDER AND NECK PAIN Time Seen by MD: 23:00 Time Seen by Midlevel: 23:00 Source: patient History of Present Illness Initial Comments 65-year-old male who presents to the emergency department due to pain to the best of the head radiating down the neck to the shoulder blades onset three days. Patient denies any injuries or trauma. PMHx IBS, cardiomyopathy, sleep apnea, gout Allergies: Coded Allergies: caffeine (Unverified Allergy, Unknown, 04/17/19) Home Meds Active Scripts Naproxen (Naproxen) 250 Mg Tablet, 1 TAB PO BID for pain for 5 Days, #10 TAB 0 Refills Prov:DOUG ALFARO 04/23/25 Methocarbamol (Methocarbamol) 500 Mg Tablet, 2 TAB PO TID for 5 Days, #30 TAB 0 Refills Prov:DOUG ALFARO 04/23/25 Levofloxacin (Levofloxacin) 500 Mg Tablet, 1 TAB PO DAILY for 10 Days, #10 TAB 0 Refills Prov:SOL GUY DIRECT[employer] 02/07/25 Hydroxyzine HCl (Hydroxyzine HCl) 25 Mg Tablet, 1 TAB PO BID for anxiety for 30 Days, #60 TAB 0 Refills Prov:ALETA LOBO NP 08/09/24 Tamsulosin HCl (Flomax) 0.4 Mg Cap.er.24h, 0.4 MG PO DAILY for 5 Days, #5 CAPSULE. Prov:NIMESH CRONIN MD 06/13/24 Ketorolac Tromethamine (Toradol) 10 Mg Tab, 10 MG PO tid PRN for PAIN for 5 Days, #15 TAB Prov:INMESH CRONIN MD 06/13/24 Terbinafine HCl (Terbinafine HCl) 1 % Cream..g., 1 APPL TP BID for 14 Days, #30 G 0 Refills Prov:BUSTER STEINBERG MD 02/22/24 Pantoprazole Sodium (Protonix) 40 Mg Tablet.dr, 40 MG PO DAILY, #30 TAB 2 Refills Prov:MICHELLE LAWSON Sr., MD 11/25/23 Metoclopramide HCl (Reglan) 10 Mg Tablet, 10 MG PO QID, #120 TAB 2 Refills Prov:MICHELLE LAWSON Sr., MD 11/25/23 Omeprazole (Omeprazole) 40 Mg Capsule.dr, 40 MG PO DAILY, #30 CAP Prov:PANCHO FELIZ MD 08/11/23 Dicyclomine HCl (Bentyl) 20 Mg Tab, 20 MG PO TIDP PRN for PAIN, #60 TAB Prov:PANCHO FELIZ MD 08/11/23 Reported Medications [Vitamin B12] No Conflict Check, 1000 TAB PO DAILY 05/13/19 Dicyclomine HCl (Dicyclomine HCl) 20 Mg Tablet, 20 MG PO BID, TAB 05/12/19 Rosuvastatin Calcium (Rosuvastatin Calcium) 10 Mg Tablet, 10 MG PO PM, TAB 05/12/19 Atorvastatin Calcium (Atorvastatin Calcium) 40 Mg Tablet, 40 MG PO PM, TAB 05/12/19 Ergocalciferol (Vitamin D2) (Vitamin D2) 50,000 Unit Capsule, 15619 UNIT PO QWEEK, CAP 05/12/19 Allopurinol (Allopurinol) 300 Mg Tablet, 300 MG PO DAILY, TAB 05/12/19 Lisinopril (Lisinopril) 20 Mg Tablet, 20 MG PO AM, TAB 05/12/19 Metformin HCl (Metformin HCl ER) 500 Mg Tab.er.24, 500 MG PO BID 05/12/19 Insulin NPH Hum/Reg Insulin Hm (Novolin 70-30 Flexpen) 100 Unit/1 Ml Insuln.pen, 25 UNIT SQ PM, SYRINGE 05/12/19 Insulin NPH Hum/Reg Insulin Hm (Novolin 70-30 Flexpen) 100 Unit/1 Ml Insuln.pen, 35 UNIT SQ AM, SYRINGE 05/12/19 Aspirin (Aspirin) 81 Mg Tab.chew, 81 MG PO DAILY, TAB.CHEW 05/12/19 Latanoprost/Pf (Latanoprost 0.005% Eye Drop) 7.5 Ml Drops, 7.5 ML OU PM, DROP 05/12/19 Brimonidine Tartrate (Brimonidine Tartrate) 5 Ml Drops, 5 ML OU PM, DROP 05/12/19 Timolol Maleate (Timoptic 0.5% Ophth Soln) 20 Drop/Ml Opsol, 20 DROP OU BID, DROP 05/12/19 Past Medical History Past Medical History: Other Medical History Other: IBS, CARDIOMYOPATHY, SLEEP APNEA, GOUT Past Surgical History: None Surgical History Other: BILATERAL HIP REPLACEMENT, CATARACT Family History Family History: CAD, DM, HTN Social History Social History: Negative, Lives with family, Other ROS Dictation Constitutional: Negative for fever,chills, and weight loss Eyes: Negative for injury, pain,redness, and discharge ENT: Negative for injury,pain or swelling Cardiovascular: Negative for chest pain, palpitations, and edema Respiratory: Negative for shortness of breath, cough, and wheezing, Abdomen/GI: Negative for abdominal pain, nausea, vomiting, diarrhea, and constipation Back: Negative for injury and pain : Negative for painful urination, bleeding or discharge MS/Extremity: Positive for neck pain, shoulder pain Negative for injury and deformity Skin: Negative for rash, and discoloration Neuro: Positive for headache Negative for weakness, numbness, tingling, and seizure Psych: Negative for suicide ideation, homicidal ideation, and hallucinations Physical Exam Physical Exam Dictation General: awake, alert, no acute distress Head/Face: Normocephalic, atraumatic Eyes: PERRL, EOMI, normal conjunctiva ENT: oral cavity clear, oral mucosa moist Neck: Supple, normal range of motion Cardiovascular: RRR, normal S1/S2 Respiratory: CTAB, no respiratory distress Skin: Warm, dry, normal turgor, no rash MS/Extremity: Pulses equal, no cyanosis, neurovascular intact, FROM. Bilateral trapezius tenderness Neuro: COAx4, GCS 15, strength 5/5, CN 2-12 intact, normal cerebellar exam, normal gait, Psych: Normal behavior, mood, and affect normal Results Laboratory and Microbiology Lab and Micro Result Laboratory Tests Test 04/22/25 23:55 White Blood Count 8.7 K/uL (4.8-10.8) Red Blood Count 5.18 MIL/uL (4.50-6.20) Hemoglobin 16.0 g/dL (14.0-18.0) Hematocrit 48.6 % (42-54) Mean Corpuscular Volume 93.8 fL (79-99) Mean Corpuscular Hemoglobin 30.9 pg (27.0-33.0) Mean Corpuscular Hemoglobin Concent 32.9 g/dL (32.0-36.0) Red Cell Distribution Width 13.8 % (11.0-15.5) Platelet Count 215 K/uL (130-400) Mean Platelet Volume 11.1 fL (7.5-10.5) H Immature Granulocyte % (Auto) 0.3 % (0-1) Neutrophils (%) (Auto) 71.6 % (40.0-77.0) Lymphocytes (%) (Auto) 18.4 % (21.0-51.0) L Monocytes (%) (Auto) 6.4 % (3.0-13.0) Eosinophils (%) (Auto) 3.0 % (0.0-8.0) Basophils (%) (Auto) 0.3 % (0.0-5.0) Neutrophils # (Auto) 6.2 K/uL (1.8-7.7) Lymphocytes # (Auto) 1.6 K/uL (1.0-4.8) Monocytes # (Auto) 0.6 K/uL (0.1-1.0) Eosinophils # (Auto) 0.26 K/uL (0.00-0.70) Basophils # (Auto) 0.03 K/uL (0.00-0.20) Absolute Immature Granulocyte (auto 0.03 K/uL (0-1) Nucleated Red Blood Cells 0.0 % (0.0-0.19) Sodium Level 141 mmol/L (136-145) Potassium Level 4.2 mmol/L (3.5-5.1) Chloride Level 105 mmol/L (101-111) Carbon Dioxide Level 28 mmol/L (21-32) Blood Urea Nitrogen 27 mg/dL (7-18) H Creatinine 0.9 mg/dL (0.5-1.3) Glomerular Filtration Rate Calc 96 mL/min (>90) Random Glucose 149 mg/dL (70-105) H Total Calcium 9.3 mg/dL (8.5-10.1) Labs Reviewed?: Yes EKG/XRAY/US/CT/MRI CT Scan Comment REASON: Headache ORDERING PHYSICIAN: DOUG ALFARO PROCEDURE: HEAD WO - CT HEAD/BRAIN W/O CONTRAST EXAM: Non-contrast CT examination of the Brain CLINICAL HISTORY: Headache. TECHNIQUE: Thin collimated axial CT images of the brain were obtained, with sagittal and coronal reformatted images also submitted. CT scan done according to ALARA (As Low as Reasonably Achievable). CONTRAST USED: None. COMPARISON: CT brain dated 08/09/24. FINDINGS: Mild generalized brain atrophy. No acute intracranial abnormality is present. No acute cortical infarction, hemorrhage, mass, or mass effect. No hydrocephalus or abnormal extra-axial fluid collections. The posterior fossa is unremarkable. The skull base and calvarium are intact. The mastoid air cells are clear. Severe left maxillary and mild bilateral ethmoid sinusitis. IMPRESSION: No acute intracranial abnormality is present. Mild generalized brain atrophy. Severe left maxillary and mild bilateral ethmoid sinusitis. No significant interval change from the prior imaging. /[place] DICTATED BY: ALICIA FORMAN Jr., MD DATE: 04/23/25215 [facility] MDM: Differential diagnosis: Musculoskeletal sprain, muscle spasm, fracture Rationale: 65-year-old male who presents to the emergency department due to pain to the best of the head radiating down the neck to the shoulder blades onset t hree days. Patient denies any injuries or trauma. PMHx IBS, cardiomyopathy, sleep apnea, gout Labs obtained show CBC and chemistry within normal limits. Cervical spine CT obtained with no acute fractures, mild cervical spondylosis. CT head obtained indicates no acute intracranial abnormalities, mild generalized brain atrophy. Methocarbamol and ketorolac administered in the ED. vitals stable during ED course. Patient was educated on findings and diagnosis. Advised to follow up with PCP. Return to the emergency department for any worsening symptoms. Patient verbalized understanding. Patient is stable for discharge. I independently interpreted the test that were performed, results were reviewed by me and considered findings on radiology if ordered. Medical management and examination interpretation discussions were had by me with other qualified healthcare professionals as indicated for the patient's care. ED Course Orders Procedure Category Date Status Time Ct Head/Brain W/O CT 04/22/25 Resulted Contrast 23:36 Ct Cervical Spine W/O CT 04/22/25 Resulted Contrast 23:36 Cbc With Differential LAB 04/22/25 Complete 23:36 Basic Metabolic Panel LAB 04/22/25 Complete 23:36 Ketorolac PHA 04/23/25 Complete Tromethamine 15mg/Ml 00:30 Methocarbamol PHA 04/23/25 Complete (Methocarbamol) 00:30 Vital Signs Date Time Temp Pulse Resp B/P (MAP) Pulse Ox O2 Delivery O2 Flow Rate FiO2 04/23/25 01:47 98.6 76 18 153/60 99 Room Air* 0 21 04/22/25 23:25 98.4 72 18 166/80 97 Room Air 0 DX & DISP Disposition: Discharge Departure Impression: Primary Impression: Musculoskeletal neck pain Condition: Stable Scripts Naproxen (Naproxen) 250 Mg Tablet 1 TAB PO BID for pain for 5 Days, #10 TAB 0 Refills Prov: DOUG ALFARO 04/23/25 Methocarbamol (Methocarbamol) 500 Mg Tablet 2 TAB PO TID for 5 Days, #30 TAB 0 Refills Prov: DOUG ALFARO 04/23/25 Additional Instructions: Discharge home. Rest. Follow up with primary care DrLamar in 24 hours. Return to the ER for any acute changes or worsening symptoms. If any medications were prescribed take as directed. Okay to continue home medications unless otherwise discussed during your visit in the emergency room today. Patient was also advised to follow-up with primary care physician in 1 to 2 days for continued monitoring. Referrals: MEET EASLEY M.D. (PCP) I performed the substantive portion of the visit. I have reviewed and personally made and approve the management plan that is documented in the notes by myself or the MICHAEL. I acknowledge full responsibility for the patient's management plan. DOUG ALFARO Apr 23, 2025 01:59
== END 2025-04-23 02:05 | disposition home or self-care (01) ==
LOC: EDH 22:52
DX: M54.2 Cervicalgia (principal); R51.9 Headache, unspecified; Z79.899 Other long term (current) drug therapy
CPT/HCPCS: 99285; 80048; 85025; 36415; 70450; 72125; 96372; J1885

== ENCOUNTER 2025-06-29 00:15 | Emergency (ER) | payer MEDICARE ==
[~2025-06-29] VITALS: Ht 172.7 cm; Wt 110.7 kg
[~2025-06-29 00:15] MED LIST changes: +METH-811 PO; +NAPR-1196 PO
[2025-06-29 00:52] VITALS: TEMP 98
[2025-06-29 00:57] LABS: IMMATURE GRANULOCYTE ABSOLUTE 0.03 K/uL (0-1); NUCLEATED RED BLOOD CELLS 0.0 % (0.0-0.19); PLATELET COUNT (AUTO) 220 K/uL (130-400); RED BLOOD CELL COUNT(AUTO) 4.86 MIL/uL (4.50-6.20); RED CELL DISTRIBUTION WIDTH 13.6 % (11.0-15.5); WHITE BLOOD COUNT (AUTO) 10.4 K/uL (4.8-10.8)
[2025-06-29 01:14] LABS: CREATININE 0.7 mg/dL (0.5-1.3); GLOMERULAR FILTR. RATE CALC 104.0 mL/min (>90); GLUCOSE,RANDOM 129.0 mg/dL (70-105); SODIUM SERUM 137.0 mmol/L (136-145); UREA NITROGEN, BLOOD 27.0 mg/dL (7-18)
[2025-06-29 01:18] LABS: ASPARTATE AMINOTRANSFERASE 17.0 U/L (10-37); TOTAL PROTEIN, SERUM 6.5 g/dL (6.0-8.3)
[2025-06-29] MEDS ORDERED: IOHEXOL 350 MG/ML 100ML INFUS..BTL IV ONE (01:29)
[2025-06-29 01:45] LABS: APPEARANCE,URINE CLEAR (CLEAR); GLUCOSE, URINE (UA) >=1000 mg/dL (NEGATIVE); LEUKOCYTE ESTERASE ,URINE NEGATIVE Leu/uL (NEGATIVE); NITRATE,URINE NEGATIVE (NEGATIVE); OCCULT BLOOD,URINE NEGATIVE (NEGATIVE)
[2025-06-29 01:46] LABS: ADD UA MICROSCOPIC NO
--- NOTE | 2025-06-29 01:51 | HMCIMG ---
EXAM: CT Abdomen and Pelvis with IV contrast CLINICAL HISTORY: Left upper and lower abdominal pain. TECHNIQUE: Postcontrast thin collimated axial CT images of the abdomen and pelvis were obtained, with sagittal and coronal reformatted images also submitted. A CT scan is done according to ALARA (As Low As Reasonably Achievable). COMPARISON: CT abdominal pelvis dated 06/13/2024. FINDINGS: The included lungs are clear. No focal abnormality within the liver, gallbladder, pancreas, spleen, or adrenals. Subcentimeter simple renal cortical cysts in the bilateral kidneys. There is a punctate nonobstructive calculus around the left renal midpole. Unremarkable urinary bladder. The reproductive organs are suboptimally visualized due to the beam hardening artifact caused by the bilateral hip joint replacement implants. Tiny uncomplicated fat-containing inguinal hernias bilaterally. No obvious bowel wall thickening, dilatation, or obstruction. Unremarkable appendix. A component of mild constipation is present in the colon. Calcific atherosclerotic disease in the abdominal aorta and its branches. No pathological lymphadenopathy in the abdomen or pelvis. No ascites or pneumoperitoneum. No acute bony abnormality is evident. Degenerative osseous changes. Hip joint replacement implants are present bilaterally, no evidence of hardware failure. Mild levoscoliosis of the lumbar spine. IMPRESSIONS: No acute process in the abdomen or pelvis. Subcentimeter simple renal cortical cysts bilaterally. Nonobstructive left renal calculus. Tiny, uncomplicated inguinal hernias bilaterally. A component of mild constipation is present in the colon. Compared to the prior study, there is no significant interval change. /[place]
--- NOTE | 2025-06-29 01:57 | ERN ---
ED Note History of Present Illness Stated Complaint: C/O LEFT LOWER ABD PAIN Chief Complaint: Abdominal Pain Time Seen by MD: 00:25 Time Seen by Midlevel: 00:28 Dictation: 65-year-old male with a history of diabetes, GERD, go and any constipation comin g in with complaints of left lower quadrant pain onset yesterday. Patient states he thought it was constipation so he took his lactic to [facility] but has not helped. Allergies: Coded Allergies: caffeine (Unverified Allergy, Unknown, 04/17/19) Home Meds Active Scripts Naproxen (Naproxen) 250 Mg Tablet, 1 TAB PO BID for pain for 5 Days, #10 TAB 0 Refills Prov:DOUG ALFARO 04/23/25 Methocarbamol (Methocarbamol) 500 Mg Tablet, 2 TAB PO TID for 5 Days, #30 TAB 0 Refills Prov:DOUG ALFARO 04/23/25 Levofloxacin (Levofloxacin) 500 Mg Tablet, 1 TAB PO DAILY for 10 Days, #10 TAB 0 Refills Prov:SOL GUY REGISTERED ASSOCIATE 02/07/25 Hydroxyzine HCl (Hydroxyzine HCl) 25 Mg Tablet, 1 TAB PO BID for anxiety for 30 Days, #60 TAB 0 Refills Prov:ALETA LOBO NP 08/09/24 Tamsulosin HCl (Flomax) 0.4 Mg Cap.er.24h, 0.4 MG PO DAILY for 5 Days, #5 CAPSULE. Prov:NIMESH CRONIN MD 06/13/24 Ketorolac Tromethamine (Toradol) 10 Mg Tab, 10 MG PO tid PRN for PAIN for 5 Days, #15 TAB Prov:NIMESH CRONIN MD 06/13/24 Terbinafine HCl (Terbinafine HCl) 1 % Cream..g., 1 APPL TP BID for 14 Days, #30 G 0 Refills Prov:BUSTER STEINBERG MD 02/22/24 Pantoprazole Sodium (Protonix) 40 Mg Tablet.dr, 40 MG PO DAILY, #30 TAB 2 Refills Prov:MICHELLE LAWSON Sr., MD 11/25/23 Metoclopramide HCl (Reglan) 10 Mg Tablet, 10 MG PO QID, #120 TAB 2 Refills Prov:MICHELLE LAWSON Sr., MD 11/25/23 Omeprazole (Omeprazole) 40 Mg Capsule.dr, 40 MG PO DAILY, #30 CAP Prov:PANCHO FELIZ MD 08/11/23 Dicyclomine HCl (Bentyl) 20 Mg Tab, 20 MG PO TIDP PRN for PAIN, #60 TAB Prov:PANCHO FELIZ MD 08/11/23 Reported Medications [Vitamin B12] No Conflict Check, 1000 TAB PO DAILY 05/13/19 Dicyclomine HCl (Dicyclomine HCl) 20 Mg Tablet, 20 MG PO BID, TAB 05/12/19 Rosuvastatin Calcium (Rosuvastatin Calcium) 10 Mg Tablet, 10 MG PO PM, TAB 05/12/19 Atorvastatin Calcium (Atorvastatin Calcium) 40 Mg Tablet, 40 MG PO PM, TAB 05/12/19 Ergocalciferol (Vitamin D2) (Vitamin D2) 50,000 Unit Capsule, 45603 UNIT PO QWEEK, CAP 05/12/19 Allopurinol (Allopurinol) 300 Mg Tablet, 300 MG PO DAILY, TAB 05/12/19 Lisinopril (Lisinopril) 20 Mg Tablet, 20 MG PO AM, TAB 05/12/19 Metformin HCl (Metformin HCl ER) 500 Mg Tab.er.24, 500 MG PO BID 05/12/19 Insulin NPH Hum/Reg Insulin Hm (Novolin 70-30 Flexpen) 100 Unit/1 Ml Insuln.pen, 25 UNIT SQ PM, SYRINGE 05/12/19 Insulin NPH Hum/Reg Insulin Hm (Novolin 70-30 Flexpen) 100 Unit/1 Ml Insuln.pen, 35 UNIT SQ AM, SYRINGE 05/12/19 Aspirin (Aspirin) 81 Mg Tab.chew, 81 MG PO DAILY, TAB.CHEW 05/12/19 Latanoprost/Pf (Latanoprost 0.005% Eye Drop) 7.5 Ml Drops, 7.5 ML OU PM, DROP 05/12/19 Brimonidine Tartrate (Brimonidine Tartrate) 5 Ml Drops, 5 ML OU PM, DROP 05/12/19 Timolol Maleate (Timoptic 0.5% Ophth Soln) 20 Drop/Ml Opsol, 20 DROP OU BID, DROP 05/12/19 Past Medical History Past Medical History: Diabetes-Type II, Hypertension Additional Past Medical Hx: IBS, CARDIOMYOPATHY, SLEEP APNEA, GOUT Surgical History: Other Surgical History Other: BILATERAL HIP SX Family History: CAD, DM, HTN Social History: Negative, Lives with family, Other Review of System Dictation Constitutional: Negative for fever,chills, and weight loss Eyes: Negative for injury, pain,redness, and discharge ENT: Negative for injury,pain or swelling Cardiovascular: Negative for chest pain, palpitations, and edema Respiratory: Negative for shortness of breath, cough, and wheezing, Abdomen/GI: Complaining of left lower abdominal pain Back: Negative for injury and pain : Negative for injury, bleeding and discharge MS/Extremity: Negative for injury and deformity Skin: Negative for rash, and discoloration Neuro: Negative for headache, weakness, numbness, tingling, and seizure Psych: Negative for suicide ideation, homicidal ideation, and hallucinations Review of Systems: was completed Initial Vital Sign VS Vital Signs Date Time Temp Pulse Resp B/P (MAP) Pulse Ox O2 Delivery O2 Flow Rate FiO2 06/29/25 00:16 97.9 67 20 138/71 97 Room Air 06/29/25 00:51 0 21 Physical Exam Dictation General: awake, alert, NAD Head/Face: Normocephalic, atraumatic Eyes: PERRL, EOMI, vision at baseline ENT: oral cavity clear, TMs clear, no signs of infection Neck: Trachea midline, supple, no nuchal rigidity Cardiovascular: RRR, normal S1/S2, No MRGs, no JVD Respiratory: CTAB, no respiratory distress, No rales or wheezes Abdomen: Soft, non-tender, non-distended, normal bowel sounds, no guarding or rebound. Skin: Warm, dry, normal turgor, no rash MS/Extremity: Pulses equal, no cyanosis, neurovascular intact, FROM Neuro: COAx4, GCS 15, strength 5/5, CN 2-12 intact, normal cerebellar exam, normal gait, Psych: Normal behavior, mood, and affect normal Results (Laboratory/Radiology) Laboratory/Radiology Laboratory Tests Test 06/29/25 00:49 06/29/25 01:22 White Blood Count 10.4 K/uL (4.8-10.8) Red Blood Count 4.86 MIL/uL (4.50-6.20) Hemoglobin 15.0 g/dL (14.0-18.0) Hematocrit 45.3 % (42-54) Mean Corpuscular Volume 93.2 fL (79-99) Mean Corpuscular Hemoglobin 30.9 pg (27.0-33.0) Mean Corpuscular Hemoglobin Concent 33.1 g/dL (32.0-36.0) Red Cell Distribution Width 13.6 % (11.0-15.5) Platelet Count 220 K/uL (130-400) Mean Platelet Volume 10.9 fL (7.5-10.5) H Immature Granulocyte % (Auto) 0.3 % (0-1) Neutrophils (%) (Auto) 76.3 % (40.0-77.0) Lymphocytes (%) (Auto) 15.4 % (21.0-51.0) L Monocytes (%) (Auto) 5.6 % (3.0-13.0) Eosinophils (%) (Auto) 2.2 % (0.0-8.0) Basophils (%) (Auto) 0.2 % (0.0-5.0) Neutrophils # (Auto) 7.9 K/uL (1.8-7.7) H Lymphocytes # (Auto) 1.6 K/uL (1.0-4.8) Monocytes # (Auto) 0.6 K/uL (0.1-1.0) Eosinophils # (Auto) 0.23 K/uL (0.00-0.70) Basophils # (Auto) 0.02 K/uL (0.00-0.20) Absolute Immature Granulocyte (auto 0.03 K/uL (0-1) Nucleated Red Blood Cells 0.0 % (0.0-0.19) Sodium Level 137 mmol/L (136-145) Potassium Level 4.0 mmol/L (3.5-5.1) Chloride Level 101 mmol/L (101-111) Carbon Dioxide Level 28 mmol/L (21-32) Blood Urea Nitrogen 27 mg/dL (7-18) H Creatinine 0.7 mg/dL (0.5-1.3) Glomerular Filtration Rate Calc 104 mL/min (>90) Random Glucose 129 mg/dL (70-105) H Total Calcium 8.9 mg/dL (8.5-10.1) Total Bilirubin 0.4 mg/dL (0.2-1.0) Direct Bilirubin 0.1 mg/dL (0.0-0.3) Aspartate Amino Transf (AST/SGOT) 17 U/L (10-37) Alanine Aminotransferase (ALT/SGPT) 32 U/L (12-78) Alkaline Phosphatase 90 U/L (50-136) Troponin I High Sensitivity 10 ng/L (4-75) Total Protein 6.5 g/dL (6.0-8.3) Albumin 3.6 g/dL (3.5-5.0) Lipase 42 U/L (16-77) Urine Color COLORLESS (YELLOW) Urine Appearance CLEAR (CLEAR) Urine pH 5.0 (5.0-8.0) Urine Specific [place] 1.019 (1.001-1.031) Urine Protein NEGATIVE mg/dL (NEGATIVE) Urine Glucose (UA) >=1000 mg/dL (NEGATIVE) H Urine Ketones NEGATIVE mg/dL (NEGATIVE) Urine Occult Blood NEGATIVE (NEGATIVE) Urine Nitrate NEGATIVE (NEGATIVE) Urine Bilirubin NEGATIVE mg/dL (NEGATIVE) Urine Urobilinogen 0.2 mg/dL (0.2-1.0) Urine Leukocyte Esterase NEGATIVE Elijah/uL Labs Reviewed?: Yes CT Scan Comment: [address] [address] IMAGING REPORT Signed PATIENT: JH COOK MR#: [id number] : 1960 SEX: M AGE: 65 LOCATION: [facility] ORDER STATUS: [facility] REPORT#: [id number] SERVICE REASON: left upper and lower abdominal pain ORDERING PHYSICIAN: ALETA LOBO NP PROCEDURE: ABD PEL W - CT ABDOMEN/PELVIS W/CONTRAST EXAM: CT Abdomen and Pelvis with IV contrast CLINICAL HISTORY: Left upper and lower abdominal pain. TECHNIQUE: Postcontrast thin collimated axial CT images of the abdomen and pelvis were obtained, with sagittal and coronal reformatted images also submitted. A CT scan is done according to ALARA (As Low As Reasonably Achievable). COMPARISON: CT abdominal pelvis dated 06/13/2024. FINDINGS: The included lungs are clear. No focal abnormality within the liver, gallbladder, pancreas, spleen, or adrenals. Subcentimeter simple renal cortical cysts in the bilateral kidneys. There is a punctate nonobstructive calculus around the left renal midpole. Unremarkable urinary bladder. The reproductive organs are suboptimally visualized due to the beam hardening artifact caused by the bilateral hip joint replacement implants. Tiny uncomplicated fat-containing inguinal hernias bilaterally. No obvious bowel wall thickening, dilatation, or obstruction. Unremarkable appendix. A component of mild constipation is present in the colon. Calcific atherosclerotic disease in the abdominal aorta and its branches. No pathological lymphadenopathy in the abdomen or pelvis. No ascites or pneumoperitoneum. No acute bony abnormality is evident. Degenerative osseous changes. Hip joint replacement implants are present bilaterally, no evidence of hardware failure. Mild levoscoliosis of the lumbar spine. IMPRESSIONS: No acute process in the abdomen or pelvis. Subcentimeter simple renal cortical cysts bilaterally. Nonobstructive left renal calculus. Tiny, uncomplicated inguinal hernias bilaterally. A component of mild constipation is present in the colon. Compared to the prior study, there is no significant interval change. /Allison DICTATED BY: ALICIA FORMAN Jr., MD DATE: 06/29/25249 ELECTRONICALLY SIGNED BY: ALICIA FORMAN Jr., MD DATE: 06/29/25249 ED Course ED Course Orders Procedure Category Date Status Time Cbc With Differential LAB 06/29/25 Complete 00:41 Basic Metabolic Panel LAB 06/29/25 Complete 00:41 Lipase LAB 06/29/25 Complete 00:41 Hepatic Function Panel LAB 06/29/25 Complete 00:41 Ct Abdomen/Pelvis CT 06/29/25 Resulted W/Contrast 00:41 Troponin I High LAB 06/29/25 Complete Sensitivity 00:41 12 Lead Ekg Tracing- EKG 06/29/25 Logged Technical 00:41 Urinalysis Profile LAB 06/29/25 Complete 01:21 Iohexol (Omnipaque) PHA 06/29/25 Complete 01:29 Current Medications Medications (Trade) Dose Ordered Sig/Isaiah Route PRN Reason Start Time Stop Time Status Last Admin Dose Admin Iohexol (Omnipaque) 35,000 mg STK-MED ONCE IV 06/29/25 01:29 06/29/25 01:29 DC Vital Signs Date Time Temp Pulse Resp B/P (MAP) Pulse Ox O2 Delivery O2 Flow Rate FiO2 06/29/25 00:52 98.1 65 20 119/56 98 Room Air* 0 21 06/29/25 00:51 68 18 119/56 97 Room Air* 0 21 06/29/25 00:16 97.9 67 20 138/71 97 Room Air Medical Decision Making MDM MDM: 65-year-old male with a history of diabetes, GERD, go and any constipation coming in with complaints of left lower quadrant pain onset yesterday. Patient states he thought it was constipation so he took his lactulose but has not helped.CBC shows no leukocytosis, no anemia, no thrombocytopenia. Chemistries unremarkable. No transaminitis, normal lipase. UA shows no evidence of urinary tract infection. CT scan of the abdomen shows nonobstructive left renal calculus, tiny inguinal hernias and mild constipation. Discussed findings with the patient. Discussed that he needs to follow up outpatient with the PCP, he states his lactulose as prescribed. Discussed on signs and symptoms on when to return to the ER. Differential diagnosis: Constipation, SBO, diverticulitis Rationale: Tests considered and ordered secondary to shared decision making include: Previous outside records reviewed: Old ER visits. Risk of complication and/or morbidity or mortality of patient management: None Medications-Per medication reconciliation Need for hospitalization: Patient does not meet criteria for hospitalization. Need for emergency major/minor surgery: No There are no social concerns with this patient. Prescription drug management Prescriptions will include symptomatic care Patient's prior external medical records from other ER visits were reviewed by me as indicated. Prior testing and results from previous visits were reviewed. Prior tests were taken into account with medical decision making and resource utilization, independent historian/historians were used to obtain complete medical history. I independently interpreted the test that were performed, results were reviewed by me and considered findings on radiology if ordered. Medical management and examination interpretation discussions were had by me with other qualified healthcare professionals as indicated for the patient's care. DX & DISP Disposition: Discharge Departure Impression: Primary Impression: Constipation Additional Impression: Left renal stone Condition: Stable Additional Instructions: Your CT scan does not show any acute findings. Patient's you have a left kidney stone, and constipation. Continue taking her lactulose as prescribed and follow up with your primary doctor in 1-2 days. Return to the hospital if you have any worsening symptoms. Referrals: MEET EASLEY M.D. (PCP) Time of Disposition: 02:06 I have reviewed the case, and I agree with, Diagnosis and Plan ALETA LOBO NP Jun 29, 2025 01:57
[2025-06-29] MEDS: 0.9%NACL 1000ML 1,000 ML IV STA (02:23)
[2025-06-29 03:15] VITALS: BP 131/66; PULSE 62; RESP 18; O2SAT 97
--- NOTE | 2025-06-29 04:57 | EKG ---
[facility] Test Date: 2025-06-29 Test Time: 01:01:37 Pat Name: JH COOK Department: ED Room: Gender: M Crop Consultant: [id number] : 1960 Requested By: ALETA LOBO Order Number: [id number] Reading MD: Roel Bertrand Measurements Intervals [employer] Rate: 64 P: 163 OK: 73 QRS: -62 QRSD: 139 T: 14 QT: 427 QTc: 440 Interpretive Statements Sinus or ectopic atrial rhythm Nonspecific IVCD with LAD Left ventricular hypertrophy Compared to ECG 02/07/2025 14:19:26 Ectopic atrial rhythm now present Sinus rhythm no longer present Q waves no longer present Electronically Signed On 06-29-2025 07:34:25 CDT by Roel Bertrand Please click the below link to view image of tracing.
== END 2025-06-29 03:15 | disposition home or self-care (01) ==
LOC: EDH 00:15
DX: K59.00 Constipation, unspecified (principal); N20.0 Calculus of kidney; E11.9 Type 2 diabetes mellitus without complications; I10 Essential (primary) hypertension; Z79.82 Long term (current) use of aspirin; Z79.84 Long term (current) use of oral hypoglycemic drugs; Z79.899 Other long term (current) drug therapy
CPT/HCPCS: 99285; 74177; 96374; 96361; 80076; 84484; 80048; 83690; 85025; 81003; 36415; 93005; J1885; J7030; Q9967